=== PATIENT | male | born 1980 | race Caucasian/White ===

== ENCOUNTER 2024-05-22 08:46 | Emergency (ER) | payer OTHER, SELFPAY ==
[2024-05-22 08:56] VITALS: BP 148/79; PULSE 69; RESP 16; TEMP 36.6; O2SAT 98
--- OUTSIDE RECORDS SUMMARY | 2024-05-22 09:13 | XMS_ITS | Patient Health Summary ---
Author Organization [facility] Address [address] [facility] [place] [address] Care Team Providers Care Chief Controller Station Name Role Phone Unavailable Primary Care Provider Unavailabl e Note from [facility],non-owned Affiliates and Associated Physician Practices is amultiple site organization consisting of ambulatory clinics and hospital sitesin [place], [place], [place] and [place]. This disclosure is being madepursuant to the Care Everywhere program and may not contain all information available regarding this patient. Last updated 17.[facility] [employer] Allergies * [place](Itching) Medications * Be aware that medications may not be up to date on this document. Alwaysverify current medications with the patient. * lancets(Started 06/04/2017) Use 1 time daily as directed 1 refill remaining * blood glucose test strip(Started 06/04/2017) Use 1 time daily as directed. * metFORMIN ER 24hr (GLUCOPHAGE XR) 500 MG tablet(Started 06/04/2017) Take 1 tablet by mouth daily with dinner X 1 week, then take 1 tab po BID x 1 week, then 1 in AM and 2 at supper x 1 week and then 2 PO BID thereafter * metFORMIN ER 24hr (GLUCOPHAGE XR) 500 MG tablet(Started 07/10/2017) Take 2 tablets by mouth 2 times daily 5 refills remaining Active Problems Problem Noted Date Diagnosed Date Type 2 diabetes mellitus wit hout complication, without long-term current use of insulin 07/10/2017 SOB (shortness of breath) 06/03/2017 Hyperglycemia 06/03/2017 Social History Tobacco Use Types Packs/Day Years Used Date Smoking Tobacco: Former Cigarettes 1.5 5 Smokeless Tobacco: Never Alcohol Use Standard Drinks/Week Comments No 0 (1 standard drink = 0.6 oz pur e alcohol) AUDIT-C Answer Date Recorded Q1: How often do you have a drink containing alc ohol? Never 09/13/2022 Average Number of Drinks Not on file 023 Q3: How often do you have si x or more drinks on one occasion? Never 09/13/2022 Sex and Gender Information Value Date Recorded Sex Assigned at Not on file Gender Identity Not on file Sexual Orientation Not on file Last Filed Vital Signs Vital Sign Reading Time Taken Comments Blood Pressure 154/83 09/13/2022 11:05 PM CDT Pulse 105 09/13/2022 11:26 PM CDT Temperature 36.5 C (97.7 F) 09/13/2022 11:05 PM CDT Respiratory Rate 14 09/13/2022 11:05 PM CDT Oxygen Saturation 99% 09/13/2022 11:05 PM CDT Inhaled Oxygen Concentration - - Weight 104.3 kg (230 lb) 09/13/2022 11:05 PM CDT Height 177.8 cm (5' 10 ) 09/13/2022 11:05 PM CDT Body Mass Index 33 09/13/2022 11:05 PM CDT Procedures * IR FL GUIDE NEEDLE PLACEMENT(Performed 10/04/2022) Performed for Adhesive capsulitis of left shoulder * CARDIAC EKG ORDER(Performed 09/17/2022) * EKG 12-LEAD(Performed 09/14/2022) Performed for Other chest pain * XR CHEST 1VW PORTABLE(Performed 09/13/2022) Performed for Other chest pain * DIFFERENTIAL MANUAL(Performed 09/13/2022) * B-TYPE NATRIURETIC PEPTIDE(Performed 09/13/2022) * D-DIMER(Performed 09/13/2022) * TROPONIN-I HIGH SENSITIVE(Performed 09/13/2022) * CBC W AUTO DIFFERENTIAL(Performed 09/13/2022) * BASIC METABOLIC PANEL (CALCIUM TOTAL)(Performed 09/13/2022) * GLUCOSE - POINT OF CARE(Performed 09/13/2022) * EKG 12-LEAD(Performed 09/13/2022) Performed for Other chest pain * CARDIAC RHYTHM STRIP ORDER(Performed 06/05/2017) * GLUCOSE - POINT OF CARE(Performed 06/04/2017) * XR CHEST 1VW PORTABLE(Performed 06/04/2017) Performed for SOB (shortness of breath), Hyperglycemia * LACTIC ACID BLOOD(Performed 06/04/2017) Performed for Lactic acid acidosis * LIPID PROFILE(Performed 06/04/2017) Performed for Type 2 diabetes mellitus with hyperglycemia, without long-term current use of insulin([facility]) * COMPREHENSIVE METABOLIC PANEL(Performed 06/04/2017) * CBC W AUTO DIFFERENTIAL(Performed 06/04/2017) * GLUCOSE - POINT OF CARE(Performed 06/03/2017) * MICROALBUMIN URINE RANDOM(Performed 06/03/2017) Performed for Type 2 diabetes mellitus with hyperglycemia, without long-term current use of insulin([facility]) * GLUCOSE - POINT OF CARE(Performed 06/03/2017) * LACTIC ACID BLOOD(Performed 06/03/2017) Performed for Lactic acid acidosis * GLUCOSE - POINT OF CARE(Performed 06/03/2017) * HEMOGLOBIN A1C(Performed 06/03/2017) Performed for Hyperglycemia * GLUCOSE - POINT OF CARE(Performed 06/03/2017) * BLOOD GASES ARTERIAL POCT(Performed 06/03/2017) * BLOOD GASES ART (ISTAT)(Performed 06/03/2017) * BASIC METABOLIC PANEL (CALCIUM TOTAL)(Performed 06/03/2017) * TROPONIN I(Performed 06/03/2017) * LACTIC ACID BLOOD(Performed 06/03/2017) * URINALYSIS REFLEX MICROSCOPIC REFLEX CULTURE(Performed 06/03/2017) * TROPONIN I(Performed 06/03/2017) * LACTIC ACID BLOOD(Performed 06/03/2017) * CT ANGIO CHEST(Performed 06/03/2017) Performed for SOB (shortness of breath) * CULTURE BLOOD(Performed 06/02/2017) * XR CHEST 1VW(Performed 06/02/2017) Performed for SOB (shortness of breath) * PROCALCITONIN LEVEL(Performed 06/02/2017) * TROPONIN I(Performed 06/02/2017) * LACTIC ACID BLOOD(Performed 06/02/2017) * COMPREHENSIVE METABOLIC PANEL(Performed 06/02/2017) * CBC W AUTO DIFFERENTIAL(Performed 06/02/2017) * CULTURE BLOOD(Performed 06/02/2017) * EKG 12-LEAD(Performed 06/02/2017) Performed for SOB (shortness of breath) Results * IR GUIDED NEEDLE PLACEMENT 49945 (10/04/2022 11:20 AM CDT) Anatomical Region Laterality Modality Lung, Abdomen, Chest, Breast Com puted Radiography 10/04/2022 11:4 1 AM CDT Impressions 10/05/2022 5:07 AM CDT IMPRESSION: Successful fluoroscopy-guided left shoulder injection. > Interpreting Provider: Agnes Bhakta MD on 10/05/2022 5:07 AM Narrative 10/05/2022 5:07 AM CDT PROCEDURE: IR FL GUIDE NEEDLE PLACEMENT DATE/TIME OF EXAM: 10/04/2022 11:21 AM CLINICAL INFORMATION: None relevant/not provided if blank. Indication: M75.02: Adhesive capsulitis of left shoulder Additional History: COMPARISON: None. FLUOROSCOPY DOSE: 0 Fluoro dose not available Reference air kerma (ka,r). FINDINGS: The procedure, risks, and possible complications were explained to the patient in detail, and informed consent was obtained. The patient was placed supine on the procedure table. The left shoulder was prepped and draped in the usual sterile manner. Local anesthesia was provided with 1% Lidocaine. . Adequate hemostasis was achieved and a sterile dressing was applied. Small amount of contrast was injected to check the needle position. This was followed by intra-articular instillation of 2 mL 1% lidocaine, 2 mL 0.5% Sensorcaine, and 1 mL (80 mg) of Depo-Medrol. Preprocedure pain level 7/10. Postprocedure pain level 1/10. The patient tolerated the procedure well and was transferred to the holding area in stable condition. There were no immediate complications associated with the procedure. Procedure Note Agnes Bhakta MD - 10/05/2022 PROCEDURE: IR FL GUIDE NEEDLE PLACEMENT DATE/TIME OF EXAM: 10/04/2022 11:21 AM CLINICAL INFORMATION: None relevant/not provided if blank. Indication: M75.02: Adhesive capsulitis of left shoulder Additional History: COMPARISON: None. FLUOROSCOPY DOSE: 0 Fluoro dose not available Reference air kerma(ka,r). FINDINGS: The procedure, risks, and possible complications were explained to the patient in detail, and informed consent was obtained. The patient was placed supine on the procedure table. The left shoulder was prepped and draped in the usual sterile manner. Local anesthesia was provided with 1% Lidocaine. . Adequate hemostasiswas achieved and a sterile dressing was applied. Small amount of contrast was injected to check the needle position. This was followed by intra-articular instillation of 2 mL 1% lidocaine,2 mL 0.5% Sensorcaine, and 1 mL (80 mg) of Depo-Medrol. Preprocedure pain level 7/10. Postprocedure pain level 1/10. The patient tolerated the procedure well [facility] There were no immediate complicationsassociated with the procedure. IMPRESSION: Successful fluoroscopy-guided left shoulder injection. > Interpreting Provider: Agnes Bhakta MD on 10/05/2022 5:07 AM Stephanie Pham MD IR ORDERABLES * CARDIAC EKG ORDER (09/17/2022 12:58 PM CDT) Narrative 09/17/2022 12:58 PM CDT Ordered by an unspecified provider. Scanned Document CARDIAC SERVICES ORD ERABLES * XR CHEST 1VW PORTABLE (09/13/2022 11:36 PM CDT) Only the most recent of2 resultswithin the time period is included. Anatomical Region Laterality Modality Chest Computed Radiogr aphy 09/14/2022 4:56 AM CDT Impressions 09/14/2022 5:30 AM CDT IMPRESSION: No acute process. > Interpreting Provider: Agnes Bhakta MD on 09/14/2022 5:30 AM Narrative 09/14/2022 5:30 AM CDT PROCEDURE: XR CHEST 1VW PORTABLE 09/14/2022 4:56 AM HISTORY: R07.89: Other chest pain. FINDINGS AND IMPRESSION: COMPARISON: 06/04/2017. FINDINGS: Single view of the chest reveals no evidence of pulmonary disease. The heart and mediastinum are within normal limits. The diaphragms are smooth and the costophrenic angles are clear. The lungs are radiographically clear. Bony thorax is normal. Procedure Note Agnes Bhakta MD - 09/14/2022 PROCEDURE: XR CHEST 1VW PORTABLE 09/14/2022 4:56 AM HISTORY: R07.89: Other chest pain. FINDINGS AND IMPRESSION: COMPARISON: 06/04/2017. FINDINGS: Single view of the chest reveals no evidence of pulmonary disease. The heart and mediastinum are within normal limits. The diaphragms are smooth and the costophrenic angles are clear. The lungs are radiographically clear. Bony thorax is normal. IMPRESSION: No acute process. > Interpreting Provider: Agnes Bhakta MD on 09/14/2022 5:30 AM Robby Anne MD DIAGNOSTIC IMAGING O RDERABLES * TROPONIN-I HIGH SENSITIVE (09/13/2022 11:17 PM CDT) Pathologist [facility] Troponin I High Sensitive <3 <=35 ng/L 09/14/2022 12:04 AM CDT [facility] Blood BLOOD SPECIMEN / Unknown Venipuncture / Unknown 09/13/2022 11:17 PM CDT 09/13/2022 11:44 PM CDT Robby Anne MD LAB - CHEMISTRY [facility] Organization Address City/State/[facility] Co de Phone Number [facility] [address] * D-DIMER (09/13/2022 11:17 PM CDT) Pathologist [facility] D-Dimer <0.27 <0.50 ug/mL FEU 09/13/2022 11:54 PM CDT [facility] Blood BLOOD SPECIMEN / Unknown Venipuncture / Unknown 09/13/2022 11:17 PM CDT 09/13/2022 11:41 PM CDT Narrative [facility] - 09/13/2022 11:54 PM CDT Intended for use in conjunction with a clinical pretest probability (PTP) assessment model to exclude pulmonary embolism (PE) and deep venous thrombosis (DVT) in outpatients suspected of PE or DVT when the D-dimer level is inferior to a predefined cut-off. A D-dimer test should be used in conjunction with a well validated clinical score to safely exclude VTE in outpatients with a low or moderate clinical score. Patients with distal DVT may have a normal D-dimer level. In DIC the D-dimer level increases, therefore D-dimer assays can help in the diagnosis of DIC and in DIC patient management. Robby Anne MD LAB - COAGULATION OR DERABLES Performing Organization Address [facility]/ZIP Co de Phone Number [facility] [address] * (ABNORMAL) DIFFERENTIAL MANUAL (09/13/2022 11:17 PM CDT) WBC Auto 10.5(H) 4.0 - 10.0 x10E9/L 09/14/2022 1:33 AM CDT [facility] Neutrophils % Manual 50 40 - 75 % 09/14/2022 1:33 AM T [facility] Lymphocytes % Manual 42 19 - 53 % 09/14/2022 1:33 AM CDT [facility] Monocytes % Manual 6 5 - 13 % 09/14/2022 1:33 AM T [facility] Eosinophils % Manual 2 1 - 7 % 09/14/2022 1:33 AM T [facility] Neutrophils Absolute Manual 5.3 1.6 - 6.1 x10E3/uL 09/14/2022 1:33 AM CDT [facility] Lymphocytes Absolute Manual 4.4(H) 1.2 - 3.7 x10E3/uL 09/14/2022 1:33 AM T [facility] Monocytes Absolute Manual 0.6 0.2 - 0.9 x10E3/uL 09/14/2022 1:33 AM T [facility] Eosinophils Absolute Manual 0.2 0.0 - 0.5 x10E3/uL 09/14/2022 1:33 AM T [facility] Cells Counted 100 # cells 09/14/2022 1:33 AM T [facility] Platelet Estimation Adequate platelets Normal, Adequate platelets 09/14/2022 1:33 AM T [facility] RBC Morphology Normal 09/14/2022 1:33 AM T [facility] Atypical Lymphocyte Occasional(A ) None 09/14/2022 1:33 AM T [facility] Large Platelets Occasional(A ) None 09/14/2022 1:33 AM T [facility] Blood BLOOD SPECIMEN / Unknown Venipuncture / Unknown 09/13/2022 11:17 PM CDT 09/13/2022 11:42 PM CDT Robby Anne MD LAB - HEMATOLOGY ORD ERABLES Performing Organization Address [facility]/State/ZIP Co de Phone Number [facility] [address] * (ABNORMAL) CBC W AUTO DIFFERENTIAL (09/13/2022 11:17 PM CDT) Only the most recent of3 resultswithin the time period is included. WBC 10.5(H) 4.0 - 10.0 x10E9/L 09/13/2022 11:46 PM CDT [facility] RBC 4.66 4.40 - 6.10 x10E12/L 09/13/2022 11:46 PM CDT [facility] Hemoglobin 14.3 13.7 - 17.5 gm/dL 09/13/2022 11:46 PM CDT [facility] Hematocrit 41.1 40.1 - 51.0 % 09/13/2022 11:46 PM CDT [facility] MCV 88.2 78.0 - 100.0 fl 09/13/2022 11:46 PM CDT [facility] MCH 30.7 25.6 - 34.0 pg 09/13/2022 11:46 PM CDT [facility] MCHC 34.8 32.3 - 36.5 gm/dL 09/13/2022 11:46 PM CDT [facility] RDW 13.3 11.6 - 14.4 % 09/13/2022 11:46 PM CDT [facility] MPV 9.8 9.4 - 12.4 fl 09/13/2022 11:46 PM CDT [facility] Platelet Count 318 163 - 369 x10E9/L 09/13/2022 11:46 PM CDT [facility] nRBC Auto 0 <=0 /100 WBC 09/13/2022 11:46 PM CDT [facility] nRBC Absolute 0.00 <=0 x10E9/L 09/13/2022 11:46 PM CDT [facility] Blood BLOOD SPECIMEN / Unknown Venipuncture / Unknown 09/13/2022 11:17 PM CDT 09/13/2022 11:42 PM CDT Robby Anne MD LAB - HEMATOLOGY ORD ERABLES [facility] [address] [place] [address], [place] * (ABNORMAL) BASIC METABOLIC PANEL (CALCIUM TOTAL) (09/13/2022 11:17 PM CDT) Only the most recent of2 resultswithin the time period is included. Glucose 115 70 - 125 mg/dL 09/14/2022 12:02 AM CDT [facility] Sodium 141 136 - 145 mmol/L 09/14/2022 12:02 AM T [facility] Potassium 3.3(L) 3.4 - 5.1 mmol/L 09/14/2022 12:02 AM T [facility] Chloride 106 98 - 107 mmol/L 09/14/2022 12:02 AM T [facility] CO2 21(L) 22 - 29 mmol/L 09/14/2022 12:02 AM T [facility] Calcium 9.09 8.4 - 10.2 mg/dL 09/14/2022 12:02 AM T [facility] Anion Gap 17(H) 6 - 16 mmol/L 09/14/2022 12:02 AM T [facility] BUN 9.3 8.4 - 25.7 mg/dL 09/14/2022 12:02 AM T [facility] Creatinine 0.92 0.72 - 1.25 mg/dL 09/14/2022 12:02 AM T [facility] eGFR >90 >90 mL/min/1.7 3m2 09/14/2022 12:02 AM T [facility] Comment:The GFR result was c alculated using the updated CKD-EPI Creatinine Equation (2020). Blood BLOOD SPECIMEN / Unknown Venipuncture / Unknown 09/13/2022 11:17 PM CDT 09/13/2022 11:44 PM CDT Robby Anne MD LAB - CHEMISTRY [facility] Organization Address City/State/ZIP Co de Phone Number [facility] [address] [place] [address] * B-TYPE NATRIURETIC PEPTIDE (09/13/2022 11:17 PM CDT) BNP 20 10 - 100 pg/mL 09/14/2022 12:01 AM T [facility] Blood BLOOD SPECIMEN / Unknown Venipuncture / Unknown 09/13/2022 11:17 PM CDT 09/13/2022 11:44 PM CDT Robby Anne MD LAB - CHEMISTRY ORDE RABLES Performing Organization Address City/[facility] Co de Phone Number [facility] [address] * GLUCOSE - POINT OF CARE (09/13/2022 11:16 PM CDT) Only the most recent of6 resultswithin the time period is included. [facility] Glucose WB/POC 100 70 - 125 mg/dL 09/13/2022 11:17 PM CDT [facility] Specimen Type Cap Fingerstick 2022 11:17 PM CDT [facility] Blood BLOOD SPECIMEN / Unknown 09/13/2022 11:16 PM CDT 09/13/2022 11:17 PM CDT Robby Anne MD LAB - POINT OF CARE ORDERABLES Performing Organization Address [facility] Co de Phone Number [facility] [address] * EKG 12-LEAD (09/13/2022 11:09 PM CDT) Only the most recent of2 resultswithin the time period is included. [facility] Ventricular Rate 101 BPM [facility] Atrial Rate 101 BPM [facility] P-R Interval 138 ms [facility] QRS Duration ms 88 ms [facility] Q-T Interval ms 354 ms [facility] QTC Calculation (Bezet) 459 ms [facility] Calculated P [place] 39 degrees [facility] Calculated R [place] 58 degrees [facility] MUSE Calculated T [place] 27 degrees [facility] M[facility] Interpretation EKG SINUS TACHYCARDIA OTHERWISE NORMAL ECG WHEN COMPARED WITH ECG OF 02-JUN-2017 22:33, NO SIGNIFICANT CHANGE WAS FOUND Confirmed by THOM PALACIO, HILARIA ([id number]), desk editor BAL KAT ([id number]) on 09/16/2022 8:24:03 AM [facility] 09/13/2022 11:0 9 PM CDT 09/16/2022 8:24 AM CDT Robby Anne MD ECG ORDERABLES [facility] * CARDIAC RHYTHM STRIP ORDER (06/05/2017 10:46 AM CDT) Narrative 06/05/2017 10:46 AM CDT Ordered by an unspecified provider. Scanned Document CARDIAC SERVICES ORD ERABLES * (ABNORMAL) COMPREHENSIVE METABOLIC PANEL (06/04/2017 4:28 AM CDT) Only the most recent of2 resultswithin the time period is included. [facility] Glucose 134(H) 70 - 125 mg/dL 06/04/2017 5:24 AM T [facility] Sodium 137 136 - 145 mmol/L 06/04/2017 5:24 AM [facility] Potassium 3.7 3.4 - 4.5 mmol/L 06/04/2017 5:24 AM [facility] Chloride 106 98 - 107 mmol/L 06/04/2017 5:24 AM [facility] CO2 21(L) 22 - 29 mmol/L 06/04/2017 5:24 AM [facility] Calcium 8.7 8.4 - 10.2 mg/dL 06/04/2017 5:24 AM [facility] Anion Gap 14 10 - 20 mmol/L 06/04/2017 5:24 AM [facility] BUN 6.8(L) 8.4 - 25.7 mg/dL 06/04/2017 5:24 AM [facility] Creatinine 0.79 0.72 - 1.25 mg/dL 06/04/2017 5:24 AM [facility] eGFR by MDRD >60 >60 mL/min/1.7 3m2 06/04/2017 5:24 AM [facility] eGFR by MDRD >60 >60 mL/min/1.7 3m2 06/04/2017 5:24 AM [facility] Alkaline Phosphatase 62 40 - 150 U/L 06/04/2017 5:24 AM [facility] ALT 34 5 - 55 U/L 06/04/2017 5:24 AM [facility] AST 21 5 - 34 U/L 06/04/2017 5:24 AM [facility] Protein Total 6.4 6.4 - 8.3 gm/dL 06/04/2017 5:24 AM CDT [facility] Albumin 3.4(L) 3.5 - 5.0 gm/dL 06/04/2017 5:24 AM CDT [facility] Globulin Total 3.0 2.6 - 4.0 gm/dL 06/04/2017 5:24 AM CDT [facility] Albumin/Globulin Ratio 1.1 0.9 - 1.6 06/04/2017 5:24 AM CDT [facility] Bilirubin Total 0.8 0.2 - 1.2 mg/dL 06/04/2017 5:24 AM CDT [facility] Blood BLOOD SPECIMEN / Unknown Lab Venipuncture / Unknown 06/04/2017 4:28 AM CDT 06/04/2017 4:48 AM CDT Gregorio Evans MD LAB - CHEMISTRY [facility] Performing Organization Address [facility] Co de Phone Number [facility] [address] * LACTIC ACID BLOOD (06/04/2017 4:28 AM CDT) Only the most recent of5 resultswithin the time period is included. Lactic Acid 1.31 0.5 - 2.2 mmol/L 06/04/2017 5:22 AM CDT [facility] Blood BLOOD SPECIMEN / Unknown Lab Venipuncture / Unknown 06/04/2017 4:28 AM CDT 06/04/2017 4:47 AM CDT Dominic Juárez MD LAB - CHEMISTRY [facility] [employer] Performing Organization Address [facility] Co de Phone Number [facility] [address] * (ABNORMAL) LIPID PROFILE (06/04/2017 4:28 AM CDT) Cholesterol 199 <200 mg/dL 06/04/2017 5:24 AM CDT [facility] Triglycerides 114 <150 mg/dL 06/04/2017 5:24 AM CDT [facility] HDL Cholesterol 33(L) >40 mg/dL 8 5:24 AM CDT [facility] Chol HDL Ratio 6.0 1.0 - 6.0 06/04/2017 5:24 AM T [facility] LDL Calculated 143(H) 65 - 130 mg/dL 06/04/2017 5:24 AM T [facility] VLDL Calculated 23 10 - 40 mg/dL 06/04/2017 5:24 AM T [facility] Blood BLOOD SPECIMEN / Unknown Lab Venipuncture / Unknown 06/04/2017 4:28 AM CDT 06/04/2017 4:48 AM CDT Narrative [facility] - 06/04/2017 5:24 AM CDT Lipid Profile Comment: CHOLESTEROL LEVEL..................CLINICAL INTERPRETATION LESS THAN 200 MG/DL..............................DESIRABLE 200-239 MG/DL..............................BORDERLINE HIGH GREATER THAN 240 MG/DL................................HIGH LDL-CHOLESTEROL LEVEL..............CLINICAL INTERPRETATION LESS THAN 100 MG/DL................................OPTIMAL 100-129 MG/DL.................................NEAR OPTIMAL GREATER THAN 160 MG/DL...........................HIGH RISK HDL RISK LEVEL GREATER THEN 60 MG/DL............................DECREASED 40-60 MG/DL........................................AVERAGE LESS THAN 40 MG/DL...............................INCREASED TRIGLYCERIDE LEVEL..................CLINICAL INTERPRETATION LESS THAN 150 MG/DL...............................DESIRABLE 150-199 MG/DL...............................BORDERLINE HIGH 200-499 MG/DL..........................................HIGH GREATER THAN 500..................................VERY HIGH THE NATIONAL CHOLESTEROL EDUCATION PROGRAM HAS SET THE ABOVE GUIDELINES (REFERANCE VALUES) FOR CHOLESTEROL AND HDL. RISK ASSOCIATED WITH CHOLESTEROL/HDL RATIOS RISK....................MALE RATIO.............FEMALE RATIO 1/2 AVERAGE.................<3.4.......................<3.3 LOW RISK.................... 4.0 ...................... 3.8 AVERAGE..................... 5.0 ...................... 4.5 2X AVERAGE.................. 9.5 ...................... 7.0 3X AVERAGE...................>23........................>11 Dominic Juárez MD LAB - CHEMISTRY ORDE RABLES Performing Organization Address City/[facility]/ZIP Co de Phone Number [facility] [address] * (ABNORMAL) MICROALBUMIN URINE RANDOM (06/03/2017 6:23 PM CDT) Microalbumin Urine 50.0(H) 0.0 - 20.0 mg/dL 06/03/2017 6:33 PM CDT [facility] Urine URINE SPECIMEN OBTAINED BY CLEAN CATCH PROCEDURE / Unknown Collection / Unknown 06/03/2017 6:23 PM CDT 06/03/2017 6:28 PM CDT Dominic Juárez MD LAB - URINE CHEMISTR Y ORDERABLES Performing Organization Address [facility] Co de Phone Number [facility] [address] * (ABNORMAL) HEMOGLOBIN A1C (06/03/2017 9:06 AM CDT) Hemoglobin A1c 8.6(H) 4.2 - 5.6 % 06/03/2017 9:43 AM CDT [facility] Estimated Average Glucose 200 mg/dL 06/03/2017 9:43 AM CDT [facility] Whole Blood BLOOD SPECIMEN WITH EDTA / Unknown Lab Venipuncture / Unknown 06/03/2017 9:06 AM CDT 06/03/2017 9:27 AM CDT Narrative [facility] - 06/03/2017 9:43 AM CDT The following cutoff levels are recommended by [place] [employer]. A1c > 6.5% : considered as diabetes if two separate tests >6.5% or in an appropriate clinical setting. A1c 5.7% - 6.4% : considered as prediabetes (suggest increased risk for diabetes and cardiovascular disease) Control target level: Should be individualized. < 7 for general (non-) , < 8% less stringent goal, < 6.5 more stringent goal. Hemoglobin A1c measurements are used as an aid in the diagnosis of diabetic mellitus, as an aid to identify patients who may be at the risk for developing diabetic mellitus, and for the monitoring long-term blood glucose control in individuals with diabetes mellitus. This test should not replace glucose testing for patients with Type 1 diabetes, pediatric patients, or women. Falsely low HbA1c results may be observed in patients with clinical conditions that shorten erythrocyte life span or decrease mean erythrocyte age such as the presence of unstable hemoglobin variants, elevated hemoglobin F level or other causes of hemolytic anemia . HbA1c may not accurately reflect glycemic control when clinical conditions that affect erythrocyte survival are present. Severe Iron deficiency anemia may yield falsely high results. Hemoglobin A1c assay should not be used to diagnose or monitor diabetes in patients with malignancy, recent blood transfusion, chronic kidney or liver disease and interpretation. This method may yield falsely low results when hemoglobin (HbF) exceeds 5% in the specimen. Dominic Juárez MD LAB - CHEMISTRY JESSIKAE PATTIE Performing Organization Address [facility] Co de Phone Number [facility] [address] * BLOOD GASES ARTERIAL POCT (06/03/2017 3:44 AM CDT) Comment Notification Label Only - See Separate Report 06/03/2017 5:00 AM CDT [facility] Blood BLOOD SPECIMEN / Unknown 06/03/2017 3:44 AM CDT 06/03/2017 3:44 AM CDT Gregorio Evans MD LAB - BLOOD GASES OR DERABLES Performing Organization Address [facility] de Phone Number [facility] [address] * (ABNORMAL) BLOOD GASES ART (ISTAT) (06/03/2017 3:40 AM CDT) pH Arterial POCT 7.41 7.35 - 7.45 pH 06/03/2017 5:56 AM CDT [facility] pCO2 Arterial 36.7 35 - 45 mmHg 06/03/2017 5:56 AM CDT [facility] pO2 Arterial 76(L) 80 - 105 mmHg 06/03/2017 5:56 AM CDT [facility] HCO3 Arterial POCT 23.4 22 - 26 mmol/L 06/03/2017 5:56 AM CDT [facility] BE Arterial -1 -2 - 3 mmol/L 06/03/2017 5:56 AM CDT [facility] TCO2 Arterial Calc POCT 24 23 - 27 mmol/L 06/03/2017 5:56 AM CDT [facility] O2 Saturation Arterial 95 95 - 98 % 06/03/2017 5:56 AM CDT [facility] Site R Radial 06/03/2017 5:56 AM CDT [facility] Burak's Test POS/PASS 06/03/2017 5:56 AM CDT [facility] Treatment Delivery Method Room Air 06/03/2017 5:56 AM CDT [facility] Sample iSTAT ARTERI 06/03/2017 5:56 AM CDT [facility] PT iSTAT [id number] 06/03/2017 5:56 AM CDT [facility] Device 06/03/2017 5:56 AM CDT [facility] [employer] ID [id number] 06/03/2017 5:56 AM CDT [facility] Blood, arterial ARTERIAL BLOOD SPECIMEN / Unknown 06/03/2017 3:40 AM CDT 06/03/2017 5:56 AM CDT Gregorio Evans MD LAB - POINT OF CARE ORDERABLES Performing Organization Address City/State/[facility] Co de Phone Number [facility] [address] * TROPONIN I (06/03/2017 3:33 AM CDT) Only the most recent of3 resultswithin the time period is included. Troponin I 0.020 <=0.049 ng/mL 06/03/2017 4:09 AM CDT [facility] Blood BLOOD SPECIMEN / Unknown Lab Venipuncture / Unknown 06/03/2017 3:33 AM CDT 06/03/2017 3:38 AM CDT Narrative [facility] - 06/03/2017 4:09 AM CDT Note: Diagnosis of myocardial infarction requires symptoms of ischemia or EKG changes of ischemia and Troponin I >99th percentile of normal with <10% coefficient of variation (CV) (0.05 ng/mL) Troponin should be drawn on initial assessment and 3-6 hours later as clinically indicated. Any condition resulting in myocardial cell damage can increase cardiac troponin levels. In addition to myocardial infarction, these include but are not limited to congestive heart failure, arrhythmia, myocarditis, and non-cardiac related causes such as pulmonary embolism, renal failure and sepsis. Gregorio Evans MD LAB - CHEMISTRY ORDE RABLES Performing Organization Address [facility]/ZIP Co de Phone Number [facility] [address] * (ABNORMAL) URINALYSIS REFLEX MICROSCOPIC REFLEX CULTURE (06/03/2017 2:31 AM CDT) Color UA Straw Straw, Yellow 06/03/2017 2:41 AM CDT [facility] Clarity UA Clear Clear 06/03/2017 2:41 AM CDT [facility] Glucose UA 3+(A) Negative 06/03/2017 2:41 AM CDT [facility] Bilirubin UA Negative Negative 06/03/2017 2:41 AM CDT [facility] Ketone UA Trace(A) Negative 06/03/2017 2:41 AM CDT [facility] Specific Harper UA 1.046(H) 1.005 - 1.030 06/03/2017 2:41 AM CDT [facility] Blood UA Negative Negative 06/03/2017 2:41 AM CDT [facility] pH UA 6.0 5.0 - 8.0 pH 06/03/2017 2:41 AM T [facility] Protein UA Negative Negative 06/03/2017 2:41 AM CDT [facility] Urobilinogen UA Negative Negative mg/dL 06/03/2017 2:41 AM CDT [facility] Nitrite UA Negative Negative 06/03/2017 2:41 AM CDT [facility] Leukocyte UA Negative Negative 06/03/2017 2:41 AM T [facility] Urine Microscopy Urine microscopy not indicated 06/03/2017 2:41 AM CDT [facility] Reflex Status Culture not indicated 06/03/2017 2:41 AM T [facility] Urine URINE SPECIMEN OBTAINED BY CLEAN CATCH PROCEDURE / Unknown Collection / Unknown 06/03/2017 2:31 AM CDT 06/03/2017 2:36 AM CDT Narrative [facility] - 06/03/2017 2:41 AM CDT Gregorio Evans MD LAB - URINALYSIS ORD ERABLES Performing Organization Address [facility]/ZIP Co de Phone Number [facility] [address] * CT ANGIO CHEST [id number] (06/03/2017 1:28 AM CDT) Anatomical Region Laterality Modality Chest Computed Tomogra phy 06/03/2017 5:17 AM CDT Impressions 06/03/2017 5:22 AM CDT 1. No apparent pulmonary embolus. 2. No acute infiltrate or consolidation. Exam reviewed and findings conveyed to emergency department referring service at 0155 hours central time. Narrative 06/03/2017 5:22 AM CDT IMAGING STUDIES: CT ANGIO CHEST DATE: 06/03/2017 1:31 AM HISTORY: Shortness of breath. 36-year-old male with chest pain and shortness of breath. COMPARISON: Chest portable 06/02/2017 at approximately 2223 hours. DISCUSSION: CTA chest following intravenous administration of 90 ml Omnipaque 300 contrast. Coronal and sagittal reconstructions. Automated exposure control with radiation dose reduction. Heart size normal. No pericardial effusion. No aortic aneurysm or dissection. No apparent pulmonary embolus. No mediastinal or axillary adenopathy. Minimal basilar subsegmental atelectasis. No focal infiltrate or consolidation. No pleural effusion or pneumothorax. No acute skeletal abnormality. No acute abnormality in the upper abdomen. Procedure Note Richie Camara MD - 06/03/2017 IMAGING STUDIES: CT ANGIO CHEST DATE: 06/03/2017 1:31 AM HISTORY: Shortness of breath. 36-year-old male with chest pain and shortness of breath. COMPARISON: Chest portable 06/02/2017 at approximately 2223 hours. DISCUSSION: CTA chest following intravenous administration of 90 ml Omnipaque 300 contrast. Coronal and sagittal reconstructions. Automated exposure control with radiation dose reduction. Heart size normal. No pericardial effusion. No aortic aneurysm or dissection. No apparent pulmonary embolus. No mediastinal or axillary adenopathy. Minimal basilar subsegmental atelectasis. No focal infiltrate or consolidation. No pleural effusion or pneumothorax. No acute skeletal abnormality. No acute abnormality in the upper abdomen. IMPRESSION 1. No apparent pulmonary embolus. 2. No acute infiltrate or consolidation. Exam reviewed and findings conveyed to emergency department referring service at 0155 hours central time. Gregorio Evans MD CT ORDERABLES * CULTURE BLOOD (06/02/2017 11:25 PM CDT) Only the most recent of2 resultswithin the time period is included. Culture No growth day 5 SOREN 06/08/2017 2:12 PM CDT [facility] Blood PERIPHERAL BLOOD / Unknown Lab Venipuncture / Unknown 06/02/2017 11:25 PM CDT 06/02/2017 11:26 PM CDT Gregorio Evans MD LAB - MICROBIOLOGY O RDERABLES [facility] [address] * XR CHEST 1 VW [id number] (06/02/2017 10:55 PM CDT) Anatomical Region Laterality Modality Chest Radiographic Domenica ging 06/03/2017 6:17 AM CDT Narrative 06/03/2017 6:17 AM CDT PROCEDURE: XR CHEST 1VW 06/03/2017 6:17 AM HISTORY: Shortness of breath. FINDINGS AND IMPRESSION: COMPARISON: None Pulmonary hypoinflation No focal consolidation or pleural effusion. Cardiac size is unremarkable Pulmonary vascularity is within normal limits No pneumothorax. Bony thorax is unremarkable. Procedure Note Agnes Bhakta MD - 06/03/2017 PROCEDURE: XR CHEST 1VW 06/03/2017 6:17 AM HISTORY: Shortness of breath. FINDINGS AND IMPRESSION: COMPARISON: None Pulmonary hypoinflation No focal consolidation or pleural effusion. Cardiac size is unremarkable Pulmonary vascularity is within normal limits No pneumothorax. Bony thorax is unremarkable. Gregorio Evans MD DIAGNOSTIC IMAGING O RDERABLES * PROCALCITONIN LEVEL (06/02/2017 10:39 PM CDT) Procalcitonin 0.02 <=0.10 ng/mL 06/02/2017 11:55 PM CDT [facility] Blood BLOOD SPECIMEN / Unknown 06/02/2017 10:39 PM CDT 06/02/2017 11:23 PM CDT Narrative [facility] - 06/02/2017 11:55 PM CDT If baseline PCT is - >2.0 ng/mL: A PCT level above 2.0 ng/mL on the first day of ICU admission is associated with a high risk for progression to severe sepsis and/or septic shock. - <0.5 ng/mL: A PCT level below 0.5 ng/mL on the first day of ICU admission is associated with a low risk for progression to severe sepsis and/or septic shock. If the Procalcitonin measurement is performed shortly after systemic infection process has started (usually less than 6 hours), these values may still be low. As various non-infectious conditions are known to induce procalcitonin as well, Procalcitonin levels between 0.50 ng/mL and 2.00 ng/mL should be reviewed carefully to take into account the specific clinical background and condition(s) of the individual patient. The change in procalcitonin (PCT) concentration over time provides support in decision making on antibiotic discontinuation for suspected or confirmed septic patients and for suspected or confirmed lower respiratory tract infection (LRTI). Follow-up samples should be tested once every 1-2 days based upon physician discretion taking into account the patient's evolution and progress. Discontinuation of antibiotic therapy may be considered for suspected or confirmed septic patients if the current PCT is <= 0.5 ng/mL or <= 0.25 ng/mL for confirmed LRTI. If the PCT delta drop is > 80% in either condition, discontinuation of antibiotic therapy may be indicated. Duration of antibiotics should not be determined solely on PCT; established guidelines for the indication should be followed. Results should be interpreted in the context of a patient's clinical status and other laboratory tests. PCT peak: Highest observed PCT concentration PCT current: Most recent PCT concentration Calculate delta PCT using the following equation: Delta PCT = PCT Peak - PCT current X 100% PCT Peak The Change in Procalcitonin Calculator is available at [email or web address] If clinical picture has not improved and PCT remains high, reevaluate and consider treatment failure or other causes. Gregorio Evans MD LAB - CHEMISTRY [facility] Organization Address City/State/ZIP Co de Phone Number [id number] [place] [address]
--- OUTSIDE RECORDS SUMMARY | 2024-05-22 09:13 | XMS_ITS | Referral Summary ---
Author Organization [facility] [employer] Address [address] [place] [address] Care Team Providers Care Contract Preparer Name Role Phone Unavailable Primary Care Provider Unavailabl e Source Comments [facility] [employer],non-owned Affiliates and Associated Physician Practices is amultiple site organization consisting of ambulatory clinics and hospital sitesin [place], [place], [place]. This disclosure is being madepursuant to the Care Everywhere program and may not contain all information available regarding this patient. Last updated 17.[facility] [employer] Allergies Active Allergy Reactions Criticality Noted Date Comments Cook Itching 06/03/2017 Medications * Be aware that medications may not be up to date on this document. Alwaysverify current medications with the patient. Medication Sig Dispensed Refills Start Date End Date Status lancets Use 1 time daily as directed 100 Each 1 06/04/2017 Active blood glucose test strip Use 1 time daily as directed. 100 strip 06/04/2017 Active metFORMIN ER 24hr (GLUCOPHAGE XR) 500 MG tablet Take 1 tablet by mouth daily with dinner X 1 week, then take 1 tab po BID x 1 week, then 1 in AM and 2 at supper x 1 week and then 2 PO BID thereafter 70 tablet 06/04/2017 Active Additional Information Patient not taking.Reported on 07/10/2017 metFORMIN ER 24hr (GLUCOPHAGE XR) 500 MG tablet Take 2 tablets by mouth 2 times daily 120 tablet 5 07/10/2017 Active Active Problems Problem Noted Date Diagnosed Date [...] Mass Index 33 09/13/2022 11:05 PM CDT Functional Status Functional Status Response Date of Assess ment Is person deaf or have serious hearing difficult y? No 06/04/2017 Is person blind or have serious difficulty seein g? No 06/04/2017 Does person have serious dif ficulty walking/climbing stairs? No 06/04/2017 Does person have difficulty dressing/bathing? No 06/04/2017 Does person have difficulty doing errands alone? No 06/04/2017 Cognitive Status Response Date of Assessm ent Does person have difficulty concentrating/remembering/making decisions? No 06/04/2017 Plan of Treatment Not on file Procedures Procedure Name Priority Date/Time Associated Diagnosis Comments BASIC METABOLIC PANEL (CALCIUM TOTAL) STAT 09/13/2022 11:17 PM CDT MICROALBUMIN URINE RANDOM Routine 06/03/2017 6:23 PM CDT Type 2 diabetes mellitus with hyperglycemia, without long-term current use of insulin (HCC) HEMOGLOBIN A1C Routine 06/03/2017 9:06 AM CDT Hyperglycemia from Last 3 Months or Most Recently Relevant to Health Maintenance Results * (ABNORMAL) BASIC METABOLIC PANEL (CALCIUM TOTAL) (09/13/2022 11:17 PM CDT) Glucose 115 70 - 125 mg/dL 09/14/2022 12:02 AM CDT [facility] Sodium 141 136 - 145 mmol/L 09/14/2022 12:02 AM T [facility] Potassium 3.3(L) 3.4 - 5.1 mmol/L 09/14/2022 12:02 AM T [facility] Chloride 106 98 - 107 mmol/L 09/14/2022 12:02 AM CDT [facility] CO2 21(L) 22 - 29 mmol/L 09/14/2022 12:02 AM T [facility] Calcium 9.09 8.4 - 10.2 mg/dL 09/14/2022 12:02 AM T [facility] Anion Gap 17(H) 6 - 16 mmol/L 09/14/2022 12:02 AM T [facility] BUN 9.3 8.4 - 25.7 mg/dL 09/14/2022 12:02 AM T [facility] Creatinine 0.92 0.72 - 1.25 mg/dL 09/14/2022 12:02 AM T [facility] eGFR >90 >90 mL/min/1.7 3m2 09/14/2022 12:02 AM T [facility] Comment:The GFR result was c alculated using the updated CKD-EPI Creatinine Equation (2020). Blood BLOOD SPECIMEN / Unknown Venipuncture / Unknown 09/13/2022 11:17 PM CDT 09/13/2022 11:44 PM CDT Robby Anne MD LAB - CHEMISTRY [facility] Organization Address City/State/[facility] Co de Phone Number [facility] [address] * (ABNORMAL) MICROALBUMIN URINE RANDOM (06/03/2017 6:23 PM CDT) Microalbumin Urine 50.0(H) 0.0 - 20.0 mg/dL 06/03/2017 6:33 PM CDT [facility] Urine URINE SPECIMEN OBTAINED BY CLEAN CATCH PROCEDURE / Unknown Collection / Unknown 06/03/2017 6:23 PM CDT 06/03/2017 6:28 PM CDT Dominic Juárez MD LAB - URINE CHEMISTR Y ORDERABLES [facility] [address] * (ABNORMAL) HEMOGLOBIN A1C (06/03/2017 9:06 AM CDT) Hemoglobin A1c 8.6(H) 4.2 - 5.6 % 06/03/2017 9:43 AM CDT [facility] Estimated Average Glucose 200 mg/dL 06/03/2017 9:43 AM CDT [facility] Whole Blood BLOOD SPECIMEN WITH EDTA / Unknown Lab Venipuncture / Unknown 06/03/2017 9:06 AM CDT 06/03/2017 9:27 AM CDT Narrative [facility] - 06/03/2017 9:43 AM CDT The following cutoff levels are recommended by [place] [employer]. A1c > 6.5% : considered [...] specimen. Dominic Juárez MD LAB - CHEMISTRY [facility] [address] [place] [address], [id number] from Last 3 Months or Most Recently Relevant to Health Maintenance Advance Directives * Full Code (Latest Code Status on File) Date Activated Date Inactivated Comments 06/03/2017 5:30 AM 06/04/2017 11:58 AM
--- OUTSIDE RECORDS SUMMARY | 2024-05-22 09:13 | XMS_ITS | Clinical Summary ---
Author Organization [facility] Address [address] [place] [address] Care Team Providers Care Machine Ironer Name Role Phone Unavailable Primary Care Provider Unavailabl e Source Comments [facility],non-owned Affiliates and Associated Physician Practices is amultiple site organization consisting of ambulatory clinics and hospital sitesin [place], [place], [place] and [place]. This disclosure is being madepursuant to the Care Everywhere program and may not contain all information available regarding this patient. Last updated 17.[facility] [employer] Allergies Active Allergy Reactions Criticality Noted Date Comments [place] Itching 06/03/2017 Medications * Be aware that [...] SOB (shortness of breath) 06/03/2017 Hyperglycemia 06/03/2017 Family History Medical History Relation Name Comments Diabetes - Type 2 Brother 1 Diabetes - Type 2 Brother 2 Diabetes - Type 2 Maternal Aunt Relation Name Status Comments Brother 1 Alive Brother 2 Alive Maternal Aunt Alive Maternal Grandfather Maternal Grandmother Mother Paternal Grandfather Paternal Grandmother Social History Tobacco Use Types Packs/Day Years [...] Mass Index 33 09/13/2022 11:05 PM CDT Plan of Treatment Health Maintenance Due Date Last Done Comments HIV SCREENING 1996 HEPATITIS C SCREENING 11/21/1999 DTAP/TDAP/TD VACCINES (1 - Tdap) 2000 HEPATITIS B VACCINE (1 of 3 - 19+ 3-dose series) 2000 PNEUMOCOCCAL VACCINE (1 of 2 - PCV) 2000 DIABETES RETINOPATHY SCREENING 07/10/2017 DIABETES-HGB A1C 12/04/2017 06/03/2017 DIABETES-FOOT EXAM WITH MONOFILAMENT 07/10/2018 07/10/2017 DIABETES-STATIN 2021 DIABETES-SERUM CREATININE 09/14/20232022, 06/04/2017, 06/03/2017, Additional history exists COVID-19 VACCINE ( - season) 2023 INFLUENZA VACCINE (#1) 2023 01/18/2022 DEPRESSION SCREENING 03/11/2024 DIABETES - URINE PROTEIN SCREENING 03/11/2024 06/03/2017 ZOSTER VACCINE (1 of 2) 11/26/2031 HIB VACCINE Aged Out No longer eligi ble based on patient's age to complete this topic HPV VACCINE Aged Out No longer eligi ble based on patient's age to complete this topic MENINGOCOCCAL (Group B) VACCINE SHARED DECISION-MAKING Aged Out No longer eligible based on patient's age to complete this topic MENINGOCOCCAL GROUPS A/C/Y/W VACCINE Aged Out No longer eligible based on patient's age to complete this topic Procedures Procedure Name Priority Date/Time Associated Diagnosis [...] PANEL (CALCIUM TOTAL) (09/13/2022 11:17 PM CDT) [facility] Signature Glucose 115 70 - 125 mg/dL 09/14/2022 12:02 AM T [facility] Sodium 141 136 - 145 mmol/L 09/14/2022 12:02 AM T [facility] Potassium 3.3(L) 3.4 - 5.1 mmol/L 09/14/2022 12:02 AM T [facility] Chloride 106 98 - 107 mmol/L 09/14/2022 12:02 AM T [facility] CO2 21(L) 22 - 29 mmol/L 09/14/2022 12:02 AM T [facility] Calcium 9.09 8.4 - 10.2 mg/dL 09/14/2022 12:02 AM T [facility] Anion Gap 17(H) 6 - 16 mmol/L 09/14/2022 12:02 AM T [facility] BUN 9.3 8.4 - 25.7 mg/dL 09/14/2022 12:02 AM CDT [facility] Creatinine 0.92 0.72 - 1.25 mg/dL 09/14/2022 12:02 AM CDT [facility] eGFR >90 >90 mL/min/1.7 3m2 09/14/2022 12:02 AM CDT [facility] Comment:The GFR result was c alculated using the updated CKD-EPI Creatinine Equation (2020). Blood BLOOD SPECIMEN / Unknown Venipuncture / Unknown 09/13/2022 11:17 PM CDT 09/13/2022 11:44 PM CDT Robby Anne MD LAB - CHEMISTRY [facility] Performing Organization Address City/[facility]/ZIP Co de Phone Number [facility] [address] * (ABNORMAL) MICROALBUMIN URINE RANDOM (06/03/2017 6:23 PM CDT) Microalbumin Urine 50.0(H) 0.0 - 20.0 mg/dL 06/03/2017 6:33 PM CDT [facility] Urine URINE SPECIMEN OBTAINED BY CLEAN CATCH PROCEDURE / Unknown Collection / Unknown 06/03/2017 6:23 PM CDT 06/03/2017 6:28 PM CDT Dominic Juárez MD LAB - URINE CHEMISTR Y ORDERABLES Performing Organization Address [facility]/ZIP Co de Phone Number [facility] [address] [place] [address] * (ABNORMAL) HEMOGLOBIN A1C (06/03/2017 9:06 AM CDT) Hemoglobin A1c 8.6(H) 4.2 - 5.6 % 06/03/2017 9:43 AM CDT [facility] Estimated Average Glucose 200 mg/dL 06/03/2017 9:43 AM CDT [facility] Whole Blood BLOOD SPECIMEN WITH EDTA / Unknown Lab Venipuncture / Unknown 06/03/2017 9:06 AM CDT 06/03/2017 9:27 AM CDT Narrative [facility] - 06/03/2017 9:43 AM CDT The following cutoff levels are recommended by [place] [employer]. A1c > 6.5% : considered [...] Juárez MD LAB - CHEMISTRY [facility] Organization Address City/State/[facility] Co de Phone Number [facility] [address] from Last 3 Months or Most Recently Relevant to Health Maintenance Advance Directives * Full Code (Latest Code Status on File) Date Activated Date Inactivated Comments 06/03/2017 5:30 AM 06/04/2017 11:58 AM
--- OUTSIDE RECORDS SUMMARY | 2024-05-22 09:14 | XMS_ITS | Encounter Summary ---
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 Date/Time Encounter Type Encounter Description Reason Pro vider Source [facility] Encounter Template Text not used by [place]
--- OUTSIDE RECORDS SUMMARY | 2024-05-22 09:14 | XMS_ITS | Continuity of Care Document ---
Author Name [facility] Organization [facility] Care Team Providers Care Manager Of Marketing Name Role Phone [facility] Unavailable Unavailable Problems Combined list of problems from Department of Defense and Veterans Affairs facilities. It does not include entries that were removed or entered in error. Problem Status Onset Date Problem Type Date of Resolution Comments Source Anxiety Active Condition [facility] Chronic kidney disease stage 1 Active Condition [facility] Diabetes mellitus Active Condition [facility] Disorder of Shoulder Region ([facility] [id number]) Active Condition July 25, 2022 Entered By: JOSÉ ZAMAN Comment: Mild degenerative right shoulder- xray 07/20/22May 2022 Entered By: JOSÉ ZAMAN Comment: Left shoulder undeterminate xray 07/20/22Aug 2022 Entered By: JOSÉ ZAMAN Comment: Left shoulder atraumatic diabetic adhesive capsulitisAug 2022 Entered By: JOSÉ ZAMAN Comment: [facility] cortisone injection 09/27/2022 [facility] Exposed to noise Active Condition [facility] DEAN [facility] Exposure to Potentially Hazardous Substance ([facility] [id number]) Active Condition May 05 Entered By: JOSÉ ZAMAN Comment: - [place] reports history of exposure to burn pits.May 05, 2023 Entered By: JOSÉ ZAMAN Comment: -[facility] reporting history of exposure to radiation. [facility] History of appendectomy Active Condition May 10, 2021 Entered By: JOSÉ ZAMAN Comment: s/p Appy 1999. [facility] History of orchidopexy Active Condition May 10, 2021 Entered By: JOSÉ ZAMAN Comment: in childhood [facility] Insomnia Active Condition [facility] Obesity Active Condition [facility] Obstructive Sleep Apnea of Adult ([facility] [id number]) Active Condition Oct 16, 2021 Entered By: JOSÉ ZAMAN Comment: per home sleep study September Entered By: JOSÉ ZAMAN Comment: CPAP issue Oct 2021 [facility] Osteoarthritis of joint of right shoulder region Active Condition [facility] Rhinitis Active Condition [facility] Rupture of anterior cruciate ligament of right knee Active Condition May 10, 2021 Entered By: JOSÉ ZAMAN Comment: s/p right knee ACL reconstruction in 2021 Entered By: JOSÉ ZAMAN Comment: recurrence with revision in 2003 [facility] Spermatocele Active Condition Jun 10, 2008 Entered By: PENNY SORIANO Comment: bilateral [facility] Subjective tinnitus Active Condition [facility] Tobacco dependence in remission Active Condition May 10, 2021 Entered By: JOSÉ ZAMAN Comment: 3 ppd x 4 yrs, reduced 1 ppd x 9 yrsMay 10, 2021 Entered By: JOSÉ ZAMAN Comment: quit 2012. active cessation. [facility] Vitamin D deficiency Active Condition [facility] Epidermal Cyst * (ICD-9-CM 706.2) Inactive Condition 05/10/2021 [facility] Knee Pain Inactive Condition 05/10/2021 [facility] Liver function tests abnormal Inactive Condition 05/10/2021 [facility] Morbid obesity Inactive Condition 05/27/2023 [facility] Tachycardia Inactive Condition 05/27/2023 [facility] Diagnosis: ICD-10-CM G47.00 Insomnia, unspecified Active Diagnosis [facility] Diagnosis: ICD-10-CM F41.9 Anxiety disorder, unspecified Active Diagnosis [facility] Medications Combined list of outpatient medications from Department of Defense and Veterans Affairs facilities.Medications provided include 1) outpatient medications from the last 15 months, and 2) patient-reported medications. Medication Details Route Status Patient Instructions Prescription Expires Prescription Number Last Dispense Date Ordering Provider Order Date Order Qty Source CHOLECALCIF JACINDA 50MCG (2,000UNIT) TAB TAKE ONE TABLET BY MOUTH ONCE A DAY FOR VITAMIN D DEFICIEN CY. ORAL ACTIVE 05/27/2024 [id number] Martir ZAMAN 2023 100 [facility] EMPAGLIF[facility] IN 25MG TAB TAKE ONE-HALF TABLET BY MOUTH ONCE A DAY ORAL SUSPEND ED 11/12/2024 [id number] 5 Martir ZAMAN 2023 45 [facility] EMPAGLIFLOZ IN 25MG TAB TAKE ONE-HALF TABLET BY MOUTH ONCE A DAY ORAL DISCONT INUED 10/03/2023 [id number] 4 Martir ZAMAN 2022 45 [facility] ESCITALOPRA M OXALATE 20MG TAB TAKE ONE TABLET BY MOUTH ONCE A DAY FOR ANXIETY ORAL SUSPEND ED 03/03/2025 [id number] 5 Martir ZAMAN 2023 90 [facility] ESCITALOPRA M OXALATE 20MG TAB TAKE ONE TABLET BY MOUTH ONCE A DAY FOR ANXIETY ORAL DISCONT INUED 01/10/2024 [id number] 4 Martir ZAMAN 2022 90 [facility] LISINOPRIL 5MG TAB TAKE ONE-HALF TABLET BY MOUTH ONCE A DAY FOR HEART OR BLOOD PRESSURE ORAL 02/13/2024 [id number] Martir ZAMAN 2022 45 [facility] MELOXICAM 15MG TAB TAKE ONE TABLET BY MOUTH ONCE A DAY FOR PAIN TAKE WITH FOOD DO NOT TAKE OTHER NSAIDS WHILE ON THIS MED ORAL ACTIVE 07/02/2024 [id number] 5 Martir ZAAMN 2023 90 [facility] MELOXICAM 15MG TAB TAKE ONE TABLET BY MOUTH ONCE A DAY TAKE WITH FOOD DO NOT TAKE OTHER NSAIDS WHILE ON THIS MED ORAL DISCONT INUED (EDIT) 05/27/2024 [id number] 4 Martir ZAMAN 2023 30 [facility] METFORMIN HCL 1000MG TAB TAKE ONE-HALF TABLET BY MOUTH TWICE A DAY WITH MEALS FOR DIABETES TAKE WITH FOOD. AVOID ALCOHOL. DISCONTI NUE BEFORE GETTING XRAY DYE. ORAL ACTIVE 05/27/2024 [id number] 5 Martir ZAMAN PA 2023 90 [facility] METFORMIN HCL 1000MG TAB TAKE ONE-HALF TABLET BY MOUTH TWICE A DAY WITH MEALS FOR DIABETES TAKE WITH FOOD. AVOID ALCOHOL. DISCONTI NUE BEFORE GETTING XRAY DYE. ORAL DISCONT INUED 07/27/2023 [id number] Martir ZAMAN PA 2022 90 [facility] SIMVASTATIN 40MG TAB TAKE ONE-HALF TABLET BY MOUTH EVERY EVENING TO LOWER CHOLESTE ROL ORAL 10/03/2023 [id number] 4 Martir ZAMAN PA 2022 45 [facility] TRAZODONE HCL 100MG TAB TAKE ONE-HALF TABLET BY MOUTH AT BEDTIME FOR SLEEP ORAL ACTIVE 05/27/2024 [id number] 4 Martir ZAMAN PA 2023 45 [facility] Allergies, Adverse Reactions, Alerts Combined list of allergies from Department of Defense and Veterans Affairs facilities. It does not include entries that were removed or entered in error. Substance Category Reaction Severity Reaction type Status Date Reported Comments Source STRAWBERRIES Propensity to adverse reactions to food (finding) Urticaria active 1 [facility] Immunizations Combined list of available immunizations from the Department of Defense and Veterans Affairs facilities. Immunization Series Date Given Administered By Site Reaction Lot Number CVX Code Drug Hire Car Driver Status Comments Source INFLUENZA, INJECTABLE, QUADRIVALENT, PRESERVATIVE FREE 2021 150 complet ed [facility] PNEUMOCOCCAL CONJUGATE PCV20, POLYSACCHARID E [id number] CONJUGATE, ADJUVANT, PF 2021 216 complet ed [facility] TDAP 2021 115 complet ed [facility] TD(ADULT) UNSPECIFIED FORMULATION 2002 139 complet ed [facility] Results Combined list of recent chemistry, hematology and other laboratory results from Department of Defense and Veterans Affairs, ranging from 15 months to all on record, depending upon the facility. Order Name Results Value Reference Range Date Interpretation Specimen Comments Source ANTINUCLE AR AB (PB-MA) NUCLEAR AB [PRESENCE] IN SERUM Negative 05/23 Specimen Type: SERUM Comment: JOSE A IFA is a first line screen for detecting the presence of up to approximate ly 150 autoantibod ies in various autoimmune diseases. A negative JOSE A IFA result suggests JOSE A-associa silke autoimmune disease is not present at this time, but is not definitive. If there is high clinical suspicion for Sjogren's Syndrome, testing for anti-SS-A/R o antibody should be considered. Anti-Yvonne-1 antibody should be considered for clinically suspected inflammator y myopathies. AC-0: Negative Internation al Consensus on JOSE A Patterns [email or web address]://doi [email or web address] For additional information , please refer to [email or web address] [email or web address] .com/faq/FA Q129 (This link is being provided for information al/ educational purposes only.) Test Performed by [employer], [employer] [facility], [address] [place] [address] Abdulaziz Bernstein M.D., Ph.D., Director of Laboratorie s , CLIA [id number] Ordering Provider: GABBY ZAMAN Report Released Date/Time: May 24, 2023 07:48 AM Reporting Lab: [address] [id number] Performing Lab: [place] [id number] [facility] COMPREHEN SIVE METABOLIC PANEL CREATININE [MASS/VOLUM E] IN SERUM OR PLASMA 0.9 mg/dL .7 - 1.3 05/23 Specimen Type: PLASMA No comment entered. Ordering Provider: GABBY ZAMAN Report Released Date/Time: May 24, 2023 07:49 AM Reporting Lab: [facility] [address] [place] [address] Performing Lab: [facility] [address] [facility] COMPREHEN SIVE METABOLIC PANEL UREA NITROGEN [MASS/VOLUM E] IN SERUM OR PLASMA 18 mg/dL 9.0 - 25.0 05/23 Specimen Type: PLASMA No comment entered. Ordering Provider: GABBY ZAMAN Report Released Date/Time: May 24, 2023 07:49 AM Reporting Lab: [facility] [address] [place] [address] Performing Lab: [address] [facility] COMPREHEN SIVE METABOLIC PANEL GLUCOSE [MASS/VOLUM E] IN SERUM OR PLASMA 84 mg/dL 72 - 99 05/23 Specimen Type: PLASMA No comment entered. Ordering Provider: GABBY ZAMAN Report Released Date/Time: May 24, 2023 07:49 AM Reporting Lab: [facility] [address] [place] [address] Performing Lab: [address] [facility] COMPREHEN SIVE METABOLIC PANEL SODIUM [MOLES/VOLU ME] IN SERUM OR PLASMA 138 meq/L 136 - 145 05/23 Specimen Type: PLASMA No comment entered. Ordering Provider: GABBY ZAMAN Report Released Date/Time: May 24, 2023 07:49 AM Reporting Lab: [place] [address] Performing Lab: [address] [facility] COMPREHEN SIVE METABOLIC PANEL POTASSIUM [MOLES/VOLU ME] IN SERUM OR PLASMA 4.2 meq/L 3.5 - 5 05/23 Specimen Type: PLASMA No comment entered. Ordering Provider: GABBY ZAMAN Report Released Date/Time: May 24, 2023 07:49 AM Reporting Lab: [place] [address] Performing Lab: [facility] [address] [place] [id number] [place] [address] [facility] COMPREHEN SIVE METABOLIC PANEL CHLORIDE [MOLES/VOLU ME] IN SERUM OR PLASMA 105 meq/L 98 - 107 05/23 Specimen Type: PLASMA No comment entered. Ordering Provider: GABBY ZAMAN Report Released Date/Time: May 24, 2023 07:49 AM Reporting Lab: [facility] [address] [place] [address] Performing Lab: [facility] [address] [facility] COMPREHEN SIVE METABOLIC PANEL CARBON DIOXIDE, TOTAL [MOLES/VOLU ME] IN SERUM OR PLASMA 23 meq/L 22 - 31 05/23 Specimen Type: PLASMA No comment entered. Ordering Provider: GABBY ZAMAN Report Released Date/Time: May 24, 2023 07:49 AM Reporting Lab: [facility] [address] [place] [address] Performing Lab: [facility] [address] [place] [address] [facility] COMPREHEN SIVE METABOLIC PANEL CALCIUM [MASS/VOLUM E] IN SERUM OR PLASMA 8.9 mg/dL 8.4 - 10.4 05/23 Specimen Type: PLASMA No comment entered. Ordering Provider: GABBY ZAMAN Report Released Date/Time: May 24, 2023 07:49 AM Reporting Lab: [facility] [address] [place] [address] Performing Lab: [address] [facility] COMPREHEN SIVE METABOLIC PANEL PROTEIN [MASS/VOLUM E] IN SERUM OR PLASMA 7.1 g/dL 6.0 - 8.6 05/23 Specimen Type: PLASMA No comment entered. Ordering Provider: GABBY ZAMAN Report Released Date/Time: May 24, 2023 07:49 AM Reporting Lab: [facility] [address] [place] [address] Performing Lab: [facility] [address] [facility] COMPREHEN SIVE METABOLIC PANEL ALBUMIN [MASS/VOLUM E] IN SERUM OR PLASMA 4.3 g/dL 3.4 - 5.0 05/23 Specimen Type: PLASMA No comment entered. Ordering Provider: GABBY ZAMAN Report Released Date/Time: May 24, 2023 07:49 AM Reporting Lab: [facility] [address] [place] [address] Performing Lab: [facility] [address] [facility] COMPREHEN SIVE METABOLIC PANEL BILIRUBIN.T OTAL [MASS/VOLUM E] IN SERUM OR PLASMA 0.8 mg/dL 0.2 - 1.2 05/23 Specimen Type: PLASMA No comment entered. Ordering Provider: GABBY ZAMAN Report Released Date/Time: May 24, 2023 07:49 AM Reporting Lab: [facility] [address] [place] [address] Performing Lab: [facility] [address] [facility] COMPREHEN SIVE METABOLIC PANEL ALKALINE PHOSPHATASE [ENZYMATIC ACTIVITY/VO LUME] IN SERUM OR PLASMA 54 U/L 40 - 150 05/23 Specimen Type: PLASMA No comment entered. Ordering Provider: GABBY ZAMAN Report Released Date/Time: May 24, 2023 07:49 AM Reporting Lab: [facility] [address] [place] [address] Performing Lab: [address] [facility] COMPREHEN SIVE METABOLIC PANEL ASPARTATE AMINOTRANSF ERASE [ENZYMATIC ACTIVITY/VO LUME] IN SERUM OR PLASMA 16 U/L 5 - 34 05/23 Specimen Type: PLASMA No comment entered. Ordering Provider: GABBY ZAMAN Report Released Date/Time: May 24, 2023 07:49 AM Reporting Lab: [facility] [address] [place] [address] Performing Lab: [place] [address] [facility] COMPREHEN SIVE METABOLIC PANEL ALANINE AMINOTRANSF ERASE [ENZYMATIC ACTIVITY/VO LUME] IN SERUM OR PLASMA 16 U/L 8 - 40 05/23 Specimen Type: PLASMA No comment entered. Ordering Provider: GABBY ZAMAN Report Released Date/Time: May 24, 2023 07:49 AM Reporting Lab: [facility] [address] [place] [address] Performing Lab: [address] [facility] COMPREHEN SIVE METABOLIC PANEL GLOMERULAR FILTRATION RATE/1.73 SQ M.PREDICTED [VOLUME RATE/AREA] IN SERUM, PLASMA OR BLOOD BY CREATININE- BASED FORMULA (CKD-EPI 2020) 110 05/23 Specimen Type: PLASMA No comment entered. Ordering Provider: GABBY ZAMAN Report Released Date/Time: May 24, 2023 07:49 AM Reporting Lab: [place] [address] Performing Lab: [address] [facility] HGA1C HEMOGLOBIN A1C/HEMOGLO BIN.TOTAL IN BLOOD 5.4 4.0 - 6.0 05/23 Specimen Type: BLOOD No comment entered. Ordering Provider: GABBY ZAMAN Report Released Date/Time: May 24, 2023 07:49 AM Reporting Lab: [place] [address] Performing Lab: [address] [facility] LIPID PANEL (MA) CHOLESTEROL [MASS/VOLUM E] IN SERUM OR PLASMA 176 mg/dL 0 - 200 05/23 Specimen Type: PLASMA No comment entered. Ordering Provider: GABBY ZAMAN Report Released Date/Time: May 24, 2023 07:49 AM Reporting Lab: [facility] [address] [place] [address] Performing Lab: [place] [address] [facility] [place] [facility] LIPID PANEL (MA) TRIGLYCERID E [MASS/VOLUM E] IN SERUM OR PLASMA 120 mg/dL 0 - 150 05/23 Specimen Type: PLASMA No comment entered. Ordering Provider: GABBY ZAMAN Report Released Date/Time: May 24, 2023 07:49 AM Reporting Lab: [place] [address] Performing Lab: [address] [facility] LIPID PANEL (MA) CHOLESTEROL IN LDL [MASS/VOLUM E] IN SERUM OR PLASMA BY CALCULATION 107 mg/dL 05/23 Specimen Type: PLASMA No comment entered. Ordering Provider: GABBY ZAMAN Report Released Date/Time: May 24, 2023 07:49 AM Reporting Lab: [place] [address] Performing Lab: [address] [facility] LIPID PANEL (MA) CHOLESTEROL IN HDL [MASS/VOLUM E] IN SERUM OR PLASMA 45 mg/dL 40 05/23 Specimen Type: PLASMA No comment entered. Ordering Provider: GABBY ZAMAN Report Released Date/Time: May 24, 2023 07:49 AM Reporting Lab: [place] [address] Performing Lab: [address] [facility] RHEUMATOI D FACTOR (MA) RHEUMATOID FACTOR [UNITS/VOLU ME] IN SERUM OR PLASMA <14[IU]/ mL 05/23 Specimen Type: SERUM Comment: REFERENCE RANGE: <14 IU/mL Test Performed by Juan Callaway, [employer] [facility], [address] [place] [address] Abdulaziz Bernstein M.D., Ph.D., Director of Laboratorie s , CLIA [id number] Ordering Provider: LAMCZIK,GABBY ECCA A PA Report Released Date/Time: May 24, 2023 07:49 AM Reporting Lab: [facility] [address] [address] Performing Lab: [facility] [address] [facility] [address] [facility] SEDRATE (MA-EV) ERYTHROCYTE SEDIMENTATI ON RATE 11 mm/h 0 - 20 05/23 Specimen Type: BLOOD No comment entered. Ordering Provider: GABBY ZAMAN Report Released Date/Time: May 24, 2023 07:48 AM Reporting Lab: [facility] [address] [place] [address] Performing Lab: [address] CB TSH (MA-PB-ST L) THYROTROPIN [UNITS/VOLU ME] IN SERUM OR PLASMA 0.770 u[IU]/mL 0.470 - 5.000 05/23 Specimen Type: SERUM No comment entered. Ordering Provider: GABBY ZAMAN Report Released Date/Time: May 24, 2023 07:49 AM Reporting Lab: [facility] [address] [address] Performing Lab: [address] [facility] URIC ACID URATE [MASS/VOLUM E] IN SERUM OR PLASMA 6.2 mg/dL 3.5 - 7.2 05/23 Specimen Type: PLASMA No comment entered. Ordering Provider: GABBY ZAMAN Report Released Date/Time: May 24, 2023 07:48 AM Reporting Lab: [facility] [address] [place] [address] Performing Lab: [facility] [address] [place] [address] [facility] URINE ALBUMIN PANEL (MA) ALBUMIN/CRE ATININE [MASS RATIO] IN URINE 6.5 mg/g - 30 05/23 Specimen Type: URINE No comment entered. Ordering Provider: GABBY ZAMAN Report Released Date/Time: May 24, 2023 07:48 AM Reporting Lab: [place] [address] [place] [id number] Performing Lab: [facility] [address] [facility] URINE ALBUMIN PANEL (MA) CREATININE [MASS/VOLUM E] IN URINE 184 mg/dL 05/23 Specimen Type: URINE No comment entered. Ordering Provider: GABBY ZAMAN Report Released Date/Time: May 24, 2023 07:48 AM Reporting Lab: [facility] [address] [place] [address] Performing Lab: [address] URINE ALBUMIN PANEL (MA) MICROALBUMI N [MASS/VOLUM E] IN URINE 1.2 mg/dL 05/23 Specimen Type: URINE No comment entered. Ordering Provider: GABBY ZAMAN Report Released Date/Time: May 24, 2023 07:48 AM Reporting Lab: [facility] [address] [place] [address] Performing Lab: [address] [facility] VITAMIN D, 25-HYDROX Y 25-HYDROXYV ITAMIN D3 [MASS/VOLUM E] IN SERUM OR PLASMA 25.1 ng/mL 30 - 96 05/23 L Specimen Type: SERUM No comment entered. Ordering Provider: GABBY ZAMAN Report Released Date/Time: May 24, 2023 07:49 AM Reporting Lab: [place] [address] Performing Lab: [address] Vital Signs Combined list of inpatient and outpatient Vital Signs from Department of Defense and Veterans Affairs, ranging from 12 months to all on record, depending upon the facility. Vital Sign Value Date Comments Source SYSTOLIC BLOOD PRESSURE 116 05/27/2023 12:47:34 [facility] DIASTOLIC BLOOD PRESSURE 70 05/27/2023 12:47:34 [facility] PULSE OXIMETRY 96 05/27/2023 12:47:34 [facility] WEIGHT 250 05/27/2023 12:47:34 [facility] BMI 36 kg/m2 05/27/2023 12:47:34 [facility] PAIN 6 05/27/2023 12:47:34 [facility] HEIGHT 69.5 05/27/2023 12:47:34 [facility] TEMPERATURE 98.2 05/27/2023 12:47:34 [facility] PULSE 75 05/27/2023 12:47:34 [facility] RESPIRATION 16 05/27/2023 12:47:34 [facility] Encounters Combined list of: 1) Encounters from Department of [facility] Affairs facilities going backup to the last 18 months, not all [place] inpatient encounters are included; 2) Encounters from the Department of [facility] facilities going backup to 280 months. Location Location Details Encounter Type Encounter Number Reason For Visit Attending Provider ADM Date DC Date Status Disposition Source [facility] Outpatient Encounter [id number] 11/27 [facility] PRO PHONE CALL 5-10 MIN [id number] Diagnos is: ICD-10- CM F41.9 Anxiety disorde r, unspeci fied ROLANDO,CHACHO ER R 11/29 [facility] Outpatient Encounter [id number] 12/28 [facility] HC PRO PHONE CALL 5-10 MIN [id number] Diagnos is: ICD-10- CM F41.9 Anxiety disorde r, unspeci fied ROLANDO,CHACHO ER R 01/08 [facility] Outpatient Encounter [id number] 01/24 [facility] Outpatient Encounter [id number] 02/12 [facility] Outpatient Encounter [id number] SALLY COVINGTON 02/12 [facility] Outpatient Encounter [id number] 02/[address] [facility] Outpatient Encounter [id number] 02/28 [facility] Outpatient Encounter [id number] 04/08 [facility] OFFICE O/P EST MOD 30 MIN [id number] Diagnos is: ICD-10- CM G47.00 Insomni a, unspeci fied AUSTYN,RE GAYE A PA 05/26 [facility] Outpatient Encounter [id number] 05/26 [facility] Outpatient Encounter [id number] CANDE KELLER 07/01 [facility] Outpatient Encounter [id number] 07/22 [facility] Outpatient Encounter [id number] 09/30 [facility] Outpatient Encounter [id number] [facility] Encounter [id number] 05/14 [facility] Outpatient Encounter [id number] 05/15 [facility] Social History Combined list of available smoking, tobacco, and other social history from Department of Defense and Veterans Affairs facilities. Social History Type Response Date Comment Sourc e Tobacco smoking status NHIS [facility]-TOBACCO FORMER USER 07/26/2022 [facility] History of tobacco use NH-TOBACCO QUIT 5 TO < 15 YRS 07/26/2022 [facility] History of tobacco use [facility]-TOBACCO FORMER USER 03/09/2021 [facility] History of tobacco use QUIT TOBACCO IN T HE LAST 12 MONTHS 06/10/2008 [facility] Plan of Care List of future care activities from Department of [facility] Affairs facilities. Additional future care activities may be listed in the Assessment and Plan section. Date/Time Care Activity Care Activity Detail Facili ty 05/25/2024 AMBULATORY - MEDICINE AMBULATORY - MEDICI NE [facility] 05/18/2024 Laboratory - State Comptroller ry Order CBC BLOOD SP ONCE [facility] 05/18/2024 Laboratory - State Comptroller ry Order COMPREHENSIVE METABOLIC PANEL GREEN LI/HEP BLD/PLAS PLASMA SP ONCE [facility] 05/18/2024 Laboratory - State Comptroller ry Order HGA1C BLOOD SP ONCE [facility] 05/18/2024 Laboratory - State Comptroller ry Order TSH (MA-PB) GOLD/RED SST SERUM SP ONCE [facility] 05/18/2024 Laboratory - State Comptroller ry Order LIPID PANEL (MA) GREEN LI/HEP BLD/PLAS PLASMA SP ONCE [facility] 05/18/2024 Laboratory - State Comptroller ry Order VITAMIN D, 25-HYDROXY GOLD/RED SST SERUM SP [facility] 05/18/2024 Laboratory - State Comptroller ry Order URINE ALBUMIN PANEL (MA) URINE SP [facility] 05/18/2024 Laboratory - State Comptroller ry Order CLEAN CATCH URINALYSIS (MA-EV) URINE,CLEAN CATCH SP ONCE [facility] 05/18/2024 Laboratory - State Comptroller ry Order CYSTATIN C EGFR PANELS (STL-PB-MA) GREEN LI/HEP BLD/[facility]
--- OUTSIDE RECORDS SUMMARY | 2024-05-22 09:14 | XMS_ITS | Encounter Summary ---
Author Name Department of Vetera Affairs (MD) Organization [facility] of [facility] (MD) Address [address] [place] [address] Care Team Providers Care Teacher Selection Specialist Name Role Phone JOSÉ ZAMAN Primary Care Provider Unavailab le Selected Encounter This section includes the information on record at MD for the Encounter. Date/Time Encounter Type Encounter Description Reason Provider Source May 27, 2023 12:45 PM OFFICE O/P EST MOD 30 MIN PRIMARY CARE/MEDICINE ICD-10-CM G47.00 Insomnia, unspecified AUSTYN,REBECC A A DANIELLE [facility] Encounter Template Text not used by MD Assessments - Encounter Diagnoses This section includes the primary and secondary diagnoses documented for the Encounter. Date/Time Primary/Secondary Diagnosis Diagnosis Name Provider Source May 27, 2023 07:38 PM PRIMARY Insomnia, unspecified AUSTYN,REBECC A A DANIELLE [facility] May 27, 2023 07:38 PM SECONDARY Anxiety disorder, unspecified MARCUSCZIK,REBECC A A PA [facility] May 27, 2023 07:38 PM SECONDARY Chronic kidney disease, stage 1 AUSTYNREBECC A A PA [facility] May 27, 2023 07:38 PM SECONDARY Obesity, unspecified AUSTYN,REBECC A A PA [facility] May 27, 2023 07:38 PM SECONDARY Obstructive sleep apnea (adult) (pediatric) AUSTYNREBECC A A PA [facility] May 27, 2023 07:38 PM SECONDARY Primary osteoarthritis, right shoulder ARIAN ZAMAN Shantel SANTOS [facility] May 27, 2023 07:38 PM SECONDARY Type 2 diabetes mellitus without complications ARIAN ZAMAN Shantel SANTOS [facility] May 27, 2023 07:38 PM SECONDARY Vitamin D deficiency, unspecified ARIAN ZAMAN Shantel SANTOS [facility] Plan of Treatment: Future Appointments (+ 6 months) and Future Tests (+/- 45 days) The Plan of Treatment section includes future care activities for the patient [facility] This section includes future appointments and future orders which are active, pending or scheduled. Future Appointments This section includes appointments that were scheduled to occur 6 months from the date of the Encounter, up to a maximum of 20 appointments. The data comes from all [facility] facilities. Appointment Date/Time Appointment Type Appointme nt Facility Name July 19, 2023 01:30 PM AMBULATORY - MEDICINE [facility] Sep 09, 2023 11:00 AM AMBULATORY - SURGERY [facility] Sep 27, 2023 09:45 AM AMBULATORY - MEDICINE [facility] Lab Results: +/- 30 days of the encounter This section includes the Chemistry and Hematology Lab Results on record with MD for the patient. Radiology Reports and Pathology Reports are provided separately, in subsequent sections. Lab Results This section contains the Chemistry/Hematology Results that were resulted 30 days before or 30 daysafter the date of the Encounter. Date/Time Source Result Type Result - Unit Interpretation Reference Range Comment May 24, 2023 08:01 AM [facility] ANTINUCLEAR AB (PB-MA) Specimen Type: SERUM Comment: JOSE A IFA is a first line screen for detecting the presence of up to approximately 150 autoantibodies in various autoimmune diseases. A negative JOSE A IFA result suggests JOSE A-associated autoimmune disease is not present at this time, but is not definitive. If there is high clinical suspicion for Sjogren's Syndrome, testing for anti-SS-A/Ro antibody should be considered. Anti-Yvonne-1 antibody should be considered for clinically suspected inflammatory myopathies. AC-0: Negative International Consensus on JOSE A Patterns https://doi.org/ 10.1515/cclm-201 8-0052 For additional information, please refer to http://education .Guardium/faq/BNB548 (This link is being provided for informational/ educational purposes only.) Test Performed by [facility], [employer] [facility], [address] [place] [address] Abdulaziz Bernstein M.D., Ph.D., Director of Laboratories , CLIA [id number] Ordering Provider: JOSÉ ZAMAN Report Released Date/Time: May 24, 2023 07:48 AM Reporting Lab: [address] [id number] Performing Lab: [address] ANTINUCLEAR AB (PB-MA) Negative Negative May 24, 2023 08:01 AM [facility] RHEUMATOID FACTOR (MA) Specimen Type: SERUM Comment: REFERENCE RANGE: <14 IU/mL Test Performed by [facility], [employer] [facility], [address] [place] [address] Abdulaziz Bernstein M.D., Ph.D., Director of Laboratories , CLIA [id number] Ordering Provider: JOSÉ ZAMAN Report Released Date/Time: May 24, 2023 07:49 AM Reporting Lab: [address] [id number] Performing Lab: [address] RHEUMATOID FACTOR (MA) <14 [IU]/mL SEE BELOW May 24, 2023 08:01 AM [facility] URIC ACID Specimen Type: PLASMA No comment entered. Ordering Provider: JOSÉ ZAMAN Report Released Date/Time: May 24, 2023 07:48 AM Reporting Lab: [address] [id number] Performing Lab: [address] [address] URIC ACID 6.2 mg/dL 3.5-7.2 May 24, 2023 08:01 AM [facility] SEDRATE (MA-EV) Specimen Type: BLOOD No comment entered. Ordering Provider: JOSÉ ZAMAN Report Released Date/Time: May 24, 2023 07:48 AM Reporting Lab: [place] [id number] Performing Lab: [place] [id number] SEDRATE (MA-EV) 11 mm/h 0-20 May 24, 2023 08:01 AM [facility] URINE ALBUMIN PANEL (MA) Specimen Type: URINE No comment entered. Ordering Provider: JOSÉ ZAMAN Report Released Date/Time: May 24, 2023 07:48 AM Reporting Lab: [place] [id number] Performing Lab: [place] [address] uACR (PB-MA) 6.5 mg/g <=30 CREATININE (URINE)(MA) 184 mg/dL URINE ALBUMIN (MA) 1.2 mg/dL May 24, 2023 08:01 AM [facility] HGA1C Specimen Type: BLOOD No comment entered. Ordering Provider: JOSÉ ZAMAN Report Released Date/Time: May 24, 2023 07:49 AM Reporting Lab: [place] [phone] Performing Lab: [place] [id number] HGA1C 5.4 4.0-6.0 May 24, 2023 08:01 AM [facility] COMPREHENSIVE METABOLIC PANEL Specimen Type: PLASMA No comment entered. Ordering Provider: JOSÉ ZAMAN Report Released Date/Time: May 24, 2023 07:49 AM Reporting Lab: [place] [address] Performing Lab: [place] [address] CREATININE 0.9 mg/dL .7-1.3 UREA NITROGEN 18 mg/dL 9.0-25.0 GLUCOSE 84 mg/dL 72-99 SODIUM 138 meq/L 136-145 POTASSIUM 4.2 meq/L 3.5-5 CHLORIDE 105 meq/L 98-107 CARBON DIOXIDE 23 meq/L 22-31 CALCIUM 8.9 mg/dL 8.4-10.4 PROTEIN 7.1 g/dL 6.0-8.6 ALBUMIN 4.3 g/dL 3.4-5.0 TOTAL BILIRUBIN 0.8 mg/dL 0.2-1.2 ALKALINE PHOSPHATASE 54 U/L 40-150 AST/SGOT 16 U/L 5-34 ALT/SGPT 16 U/L 8-40 EGFR (CKD-EPI 2020) 110 May 24, 2023 08:01 AM [facility] LIPID PANEL (MA) Specimen Type: PLASMA No comment entered. Ordering Provider: JOSÉ ZAMAN Report Released Date/Time: May 24, 2023 07:49 AM Reporting Lab: [address] [id number] Performing Lab: [address] [address] CHOLESTEROL 176 mg/dL 0-200 TRIGLYCERIDE 120 mg/dL 0-150 CALCULATED LDL 107 mg/dL HDL(New) 45 mg/dL >=40 May 24, 2023 08:01 AM [facility] TSH (MA-PB-STL) Specimen Type: SERUM No comment entered. Ordering Provider: JOSÉ ZAMAN Report Released Date/Time: May 24, 2023 07:49 AM Reporting Lab: [address] [address] Performing Lab: [address] [address] TSH 0.770 u[IU]/mL 0.470-5.000 May 24, 2023 08:01 AM [facility] VITAMIN D, 25-HYDROXY Specimen Type: SERUM No comment entered. Ordering Provider: JOSÉ ZAMAN Report Released Date/Time: May 24, 2023 07:49 AM Reporting Lab: [address] [phone] Performing Lab: [address] [address] VITAMIN D, 25-HYDROXY 25.1 ng/mL L 30-96 May 24, 2023 08:01 AM [facility] TESTOSTERONE, TOTAL (PB-MA) Specimen Type: SERUM No comment entered. Ordering Provider: JOSÉ ZAMAN Report Released Date/Time: May 24, 2023 07:49 AM Reporting Lab: [place] [address] Performing Lab: [place] [address] TESTOSTERONE, TOTAL (PB-MA) 268 ng/dL 221-871 May 24, 2023 08:01 AM [facility] URINALYSIS (MA-EV) Specimen Type: URINE Comment: Microscopic not indicated Ordering Provider: JOSÉ ZAMAN Report Released Date/Time: May 24, 2023 07:49 AM Reporting Lab: [place] [address] Performing Lab: [place] [address] URINE COLOR Light-Yellow Yellow SPECIFIC GRAVITY >1.030 H 1.005-1.029 UROBILINOGEN Normal mg/dL 0.1-1.0 U.BILIRUBIN Negative mg/dL Negative U.KETONES Negative mg/dL Negative U.PROTEIN Negative mg/dL Negative U.PH 6.0 5.0-8.0 APPEARANCE Clear Clear U.BLOOD Negative mg/dL Negative U.NITRITE Negative mg/dL Negative U.LEUK.EST. Negative Negative URINE GLUCOSE (PB-MA-EV) >1000 mg/dL H Negative May 24, 2023 08:01 AM [facility] CBC Specimen Type: BLOOD No comment entered. Ordering Provider: JOSÉ ZAMAN Report Released Date/Time: May 24, 2023 07:49 AM Reporting Lab: [place] [address] Performing Lab: [place] [address] WBC 8.8 10*3/uL 3.6-11.2 RBC 4.83 10*6/uL 4.10-5.70 HGB 14.7 g/dL 13.1-16.8 HCT 44.0 38.2-48.4 MCV 91.1 fL 80.0-100.0 MCH 30.4 pg 27.0-34.0 MCHC 33.4 g/dL 33.0-36.0 PLT 283 10*3/uL 150-400 MPV 9.9 fL 7.5-11.2 RDW 13.0 11.8-15.1 LYMPHOCYTES, AUTO % 39.4 MONOCYTES, AUTO % 6.5 NEUTROPHILS, AUTO % 46.5 EOSINOPHILS, AUTO % 6.6 BASOPHILS, AUTO % 0.7 LYMPHOCYTES, ABSOLUTE 3.48 10*3/uL 0.77-4.50 MONOCYTES, ABSOLUTE 0.57 10*3/uL 0.19-0.8 NEUTROPHILS, ABSOLUTE 4.11 10*3/uL 2.10-8.00 EOSINOPHILS, ABSOLUTE 0.58 10*3/uL 0.00-0.60 BASOPHILS, ABSOLUTE 0.06 10*3/uL 0.00-0.20 IMMATURE GRANS, AUTO % 0.3 IMMATURE GRANS, AUTO ABS 0.03 10*3/uL 0.00-0.05 Vital Signs: All taken on the encounter date This section contains inpatient and outpatient Vital Signs collected on the date of the Encounter. Date/Time Temperature Pulse Blood Pressure Respiratory Rate SP02 Pain Height Weight Body Mass Index Source May 27, 2023 12:47 PM 98.2 75 116/70 16 96 6 69.5 250 36 [facility] Social History: Smoking Status (Most current) and Tobacco Use (All prior to encounter date) This section includes the most current, and the historical, smoking and tobacco- related health factors from the MD facility where the Encounter took place. Current Smoking Status This section includes the most current smoking, or tobacco-related health factor, from the MD facility where the Encounter took place. Date/Time Current Smoking Status Comment Travis ity July 26, 2022 09:30 AM MD-TOBACCO FORMER USER [facility] Tobacco Use History This section includes a history of the smoking, or tobacco-related health factors, that were collected on or before the date of the Encounter. The data comes from the MD facility where the Encounter took place. Date/Time Smoking Status/Tobacco Use Comment F acmary July 26, 2022 09:30 AM MD-TOBACCO QUIT 5 TO < 15 YRS [facility] Mar 09, 2021 09:30 AM MD-TOBACCO FORMER USER [facility] Mar 09, 2021 09:30 AM VA-TOBACCO QUIT 5 TO < 15 YRS [facility] Encounter Notes: All associated encounter notes This section contains the clinical notes associated to the Encounter. Date/Time Encounter Note(s) Provider Source Jun 16, 2023 08:09 PM NURSING NOTE: LOCAL TITLE: TEST RESULT LETTER MA STANDARD TITLE: NURSING NOTE DATE OF NOTE: JUN 16, 2023@20:09 ENTRY DATE: JUN 16, 2023@20:10:03 AUTHOR: JOSÉ ZAMAN EXP COSIGNER: URGENCY: STATUS: COMPLETED JUN 16, 2023 ABDULAZIZ BENAVIDEZ [address], [place] [address] Dear Abdulaziz Benavidez, Your provider has reviewed your lab results. Chemistry These are tests for kidney function and chemical balance In general, the normal ranges for these tests are: SODIUM 136 - 145 POTASSIUM 3.5 - 5.0 CARBON DIOXIDE (CO2) 22 - 31 UREA NITROGEN (BUN) 10 - 20 CREATININE 0.7 - 1.3 (M) 0.6 - 1.1 (F) YOUR RESULTS: SODIUM 138 meq/L 05/24/2023 08:01 POTASSIUM 4.2 meq/L 05/24/2023 08:01 CARBON DIOXIDE 23 meq/L 05/24/2023 08:01 CREATININE 0.9 mg/dL 05/24/2023 08:01 UREA NITROGEN 18 mg/dL 05/24/2023 08:01 These readings are within normal limits. Glucose In general, 72-99 is considered the normal range for Glucose (Blood Sugar) . GLUCOSE 84 mg/dL 05/24/2023 08:01 These readings are within normal limits. Hemoglobin A1C Gives us information about diabetes (sugar or glucose) control over the past 3 months. Your target is to keep your A1C below 7. Values obtained from A1C measurements can vary. For typical A1C assays, a reported value of 7.0 could actually be between 6.72 and 7.28 if measured by a reference method. A reported value of 9.0 could actually be between 8.73 and 9.27. Ref: ngsp Hemoglobin A1c In general, 4-6 is considered the normal range for Hemoglobin A1C. HGA1C 5.4 % 05/24/2023 08:02 Acceptable Hemoglobin/Hematocrit These tests show if you are anemic. In general, the normal ranges for these tests are: HEMOGLOBIN 13.1 - 16.8 (M) 11.0 - 14.9 (F) HEMATOCRIT 38.2 - 48.4 (M) 32.6 - 43.4 (F) - YOUR RESULTS: HGB 14.7 g/dL 05/24/2023 08:02 Hematocrit 44.0 % (05/24/23 08:02) These readings are within normal limits. Lipid Profile High cholesterol and triglycerides (lipids) are risk factors for heart disease. Your cholesterol should fall between 140 and 200, and your triglyceride level should fall between 0 and 150. HDL is the good cholesterol and should ideally be greater than 40. LDL is the bad cholesterol and optimal levels should be less than 100 (near optimal is between 100 and 130). TRIGLYCERIDE 120 mg/dL 05/24/2023 08:01 CHOLESTEROL 176 mg/dL 05/24/2023 08:01 HDL(New) 45 mg/dL 05/24/2023 08:01 CALCULATED LDL 107 mg/dL 05/24/2023 08:01 These readings are within normal limits. Liver These are tests for liver function In general, the normal ranges for these tests are: PROTEIN,TOTAL 6.0 - 8.6 ALBUMIN 3.4 - 5.0 TOTAL BILIRUBIN 0.2 - 1.0 ALKALINE PHOSPATASE 40 - 150 SGOT 5 - 34 SGPT 8 - 40 YOUR RESULTS: PROTEIN 7.1 g/dL 05/24/2023 08:01 ALBUMIN 4.3 g/dL 05/24/2023 08:01 TOTAL BILIRUBIN 0.8 mg/dL 05/24/2023 08:01 ALKALINE PHOSPHATASE 54 U/L 05/24/2023 08:01 AST/SGOT 16 U/L 05/24/2023 08:01 ALT/SGPT 16 U/L 05/24/2023 08:01 These readings are within normal limits. Thyroid Stimulating Hormone (TSH)/Free T4 These tests are used to check for underactive or overactive thyroid. In general, 0.47 - 5.0 is considered the normal range for TSH. 0.7-1.48 is considered the normal range for Free T4. TSH 0.770 ulU/mL 05/24/2023 08:02 No data available for: FREE T4 (MA-PB) These readings are within normal limits. Vitamin D Helps promote stronger bones. In general, 30 - 96 is considered the normal range for Vitamin D. VITAMIN D, 25-HYDROXY 25.1 L ng/mL 05/24/2023 08:02 These results are abnormal vitamin D level is low. Your vitamin D supplement was re-ordered and recommended to be restarted White Blood Cells (WBC)/Platelets These tests are used to check for infection or other blood conditions. In general, 3.6 - 11.2 is considered the normal range for WBC. 150-400 is considered the normal range for Platelets. WBC 8.8 10*3/uL (05/24/23 08:02) PLT 283 10*3/uL 05/24/2023 08:02 These readings are within normal limits. Your provider has reviewed your test results, no special follow-up is required at this time. Please continue the same medications or treatments you have been doing. If you have any questions or concerns about your test results, please contact the [facility] [phone] between the hours of 8:30a - 4p Saturday through Saturday Future Appointments: 07/19/2023 13:30 MA-TECH INTERN SLEEP MED 09/09/2023 11:00 MA-OPTOMETRY 3A 05/18/2024 09:30 MA-MTV [facility] ONLY [place] 05/25/2024 09:30 MA-MTV PACT 3 PCP JOSÉ SANTOS PHYSICIAN [employer] PROFESSIONAL CERTIFIED JOSÉ ZAMAN [facility] May 28, 2023 12:36 PM EDUCATION NOTE: LOCAL TITLE: AFTER VISIT SUMMARY MA STANDARD TITLE: EDUCATION NOTE DICT DATE: MAY 28, 2023@12:36:50 ENTRY DATE: MAY 28, 2023@12:36:50 DICTATED BY: JOSÉ ZAMAN COSIGNER: URGENCY: STATUS: COMPLETED The patient was provided with a copy of an after-visit summary at the conclusion of the visit. The after-visit summary includes information pertaining to the patient's encounter, including diagnoses, vital signs, medications, and new orders, as well as a list of any upcoming appointments and information regarding the patient's ongoing care. The patient's medications were reviewed with the patient by the provider and were provided to the patient as an updated list of medications. The patient was instructed to inform the provider of any medication changes or discrepancies that were noted. Otherwise, the patient was instructed to continue the medications as prescribed. A copy of the after-visit summary provided to the patient is available in [employer]. SCANNED DOCUMENT SIGNATURE NOT REQUIRED Electronically Filed: 05/28/2023 by: VERONICA HERNANDEZ LPN, REBECCA A PA [facility] May 27, 2023 01:33 PM MEDICATION MGT NOT E: LOCAL TITLE: MEDICATION RECONCILIATION (REVISED) MA STANDARD TITLE: MEDICATION MGT NOTE DATE OF NOTE: MAY 27, 2023@13:33 ENTRY DATE: MAY 27, 2023@13:33:07 AUTHOR: JOSÉ ZAMAN COSIGNER: URGENCY: STATUS: COMPLETED MAY 27, 2023 [place] [id number] The Essential Med List for Review which includes the patient's active VA prescriptions and if applicable, remote VA prescriptions, non-VA prescriptions, and discontinued VA prescriptions within the last 90 days and known allergies including local and remote allergies have been reviewed. Yes Allergies/ADR LOCAL AND REMOTE: FACILITY ALLERGY/ADR -------- No Remote Allergy/ADR Data available for this patient [facility] The below is the most current list of medications from all sources that the should be taking: Active and Recently Outpatient Medications (including Supplies): Active Outpatient Medications Status 1) EMPAGLIFLOZIN 25MG TAB TAKE ONE-HALF TABLET BY MOUTH ACTIVE (S) ONCE A DAY 2) ESCITALOPRAM OXALATE 20MG TAB TAKE ONE TABLET BY ACTIVE (S) MOUTH ONCE A DAY FOR ANXIETY 3) LISINOPRIL 5MG TAB TAKE ONE-HALF TABLET BY MOUTH ONCE ACTIVE (S) A DAY FOR HEART OR BLOOD PRESSURE 4) MELOXICAM 15MG TAB TAKE ONE TABLET BY MOUTH ONCE A ACTIVE DAY TAKE WITH FOOD DO NOT TAKE OTHER NSAIDS WHILE ON THIS MED 5) METFORMIN HCL 1000MG TAB TAKE ONE-HALF TABLET BY ACTIVE MOUTH TWICE A DAY WITH MEALS FOR DIABETES TAKE WITH FOOD. AVOID ALCOHOL. DISCONTINUE BEFORE GETTING XRAY DYE. 6) SIMVASTATIN 40MG TAB TAKE ONE-HALF TABLET BY MOUTH ACTIVE (S) EVERY EVENING TO LOWER CHOLESTEROL Pending Outpatient Medications Status 1) CHOLECALCIF 50MCG (D3-2,000UNIT) TAB TAKE ONE TABLET PENDING BY MOUTH ONCE A DAY FOR VITAMIN D DEFICIENCY. 2) MELOXICAM 15MG TAB TAKE ONE TABLET BY MOUTH ONCE A PENDING DAY TAKE WITH FOOD DO NOT TAKE OTHER NSAIDS WHILE ON THIS MED 3) METFORMIN HCL 1000MG TAB TAKE ONE-HALF TABLET BY PENDING MOUTH TWICE A DAY WITH MEALS TAKE WITH FOOD. AVOID ALCOHOL. DISCONTINUE BEFORE GETTING XRAY DYE. 4) TRAZODONE HCL 100MG TAB TAKE ONE-HALF TABLET BY MOUTH PENDING AT BEDTIME 10 Total Medications TO HELP YOU UNDERSTAND YOUR DRUG LIST ACTIVE ...means that you are presently taking these meds. PENDING ..means that the medication has just been renewed, or, just ordered. HOLD .....means that the medication is active on your list, but will not be processed until pharmacy receives further instructions from you or your doctor to proceed with filling the prescription for delivery. NON-VA ...means you are getting the medication from somewhere besides the [facility]. MEDICATIONS: A prescription which is too old to fill. This does not refer to the expiration date of the medication in the container The patients medication profile has been reviewed. Medications and/or dosage may vary upon arrival in the mail. Please read and follow the directions on your bottles carefully. MEDICATION PATIENT EDUCATION: It is very important for your safety that you keep an accurate medication list, which includes your vitamins, herbals, and medications purchased from an outside pharmacy. Make sure to bring this medication list with you at all times. It is your Responsibility to update your list when medications are changed, added or discontinued and provide this updated list to all providers. Medication Changes New Medication(s): List new medications:trazodone for sleep restart Vitamin D restart Melixocam Medication education and counseling for new medications added today was provided to the [place] based on his individual needs. This included why the medication was prescribed, how they should take it and for how long, what to expect from it, what happens if medication is not taken as prescribed and any possible adverse drug-drug interactions and side effects. By signing this note I certify that patient or caregiver or family member understood my instructions. A copy of the updated medication list was given to the patient and/or caregiver that included the medications added, changed, and/or discontinued today. Medication list pertinent to this visit reviewed with patient. Medication discrepancies identified and addressed You must follow up with another healthcare provider about the following medication(s): respiratory therapy referral A return to clinic order was placed for [place]. Future Appointments:09/09/2023 11:00 MA-OPTOMETRY 3A Instruction (optional): /seema/ JOSÉ SANTOS PHYSICIAN [employer] PROFESSIONAL CERTIFIED Signed: 05/27/2023 13:35 JOSÉ ZAMAN [facility] May 27, 2023 01:09 PM [facility] NOTE: LOCAL TITLE: [facility] NOTE MA STANDARD TITLE: PRIMARY CARE OUTPATIENT NOTE DATE OF NOTE: MAY 27, 2023@13:09 ENTRY DATE: MAY 27, 2023@13:09:47 AUTHOR: JOSÉ ZAMAN EXP COSIGNER: URGENCY: STATUS: COMPLETED [place] presents today to [facility] for follow up evaluation and management of 's active Medical problems and medications CC: F/U of chronic medical condition Private provider(s): None Community Care Provider(s): None [ ] Pt has brought all medication pill bottles with him/her today. [x ] Pt has NOT brought all medication pill bottles with him/her today. [ ] Pt unsure what medications he/she is taking at home. REVIEWED ALL CURRENT MEDICATION FOR NAME, DOSE, ROUTE, FREQUENCY AND PURPOSE CURRENT MEDICATIONS BROUGHT TO CLINIC VISIT AND COMPAIRED TO MD MEDICATION LIST? (x )YES ( ) NO Says taking medications regularly without noticing any side effects * Patient states that they have DISCONTINUED the following medications: None NURSING NOTE SEEN HPI: 42 year old who presents today for routine f/u appt. presents to [facility]. Last PC visit 07/26/2022 [place] presents today requesting visit because of sleep problems. States has been going to bed about the same time every night 8-9:30 wants to go to sleep but cannot fall asleep. States he feels it is a combination of thoughts of what is going on around in the world and nobody is doing anything about it. States unable to turn thoughts off. States find himself unable to fall asleep lays for hours or sometimes will get up and then just stay up. States uses his CPAP but finds himself where he takes his mask off through the night ROS: General: no weight loss, no weakness, no anorexia,no fever or chills Skin: no new rash, no nonhealing lesion, no moles Respiratory: no SOB/cough or phlegm or hemoptysis CVS: no cp/or palpitations, no orthopnea or pnd GI: no abdominal pain/no nausea or vomiting, no diarrhea or constipation, no melena or hematochezia or hematemesis : no dysuria, no frequency or hematuria Musculoskeletal: Pain in the right shoulder. States history of frozen shoulder on the left. Received injection by [facility] and did physical therapy. States this has gone away but now starting to experience some pain in his right shoulder. Not using meloxicamstates ran out Psych: denies suicidal or homicidal ideations--denies feeling depressed States behavioral medicine services were all phone calls . He states did not feel that he made a connection with speaking to provider on phone. States that times since this was on the phone it was if he was talking to a robot . 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 12) Tobacco dependence in remission comment: 3 ppd x 4 yrs, reduced 1 ppd x 9 yrs comment: quit 2012. active cessation. 13) Tachycardia 14) Obstructive Sleep Apnea of Adult ([facility] [id number]) comment: per home sleep study September 2021 15) Rhinitis 16) Disorder of Shoulder Region ([facility] [id number]) comment: Mild degenerative right shoulder- xray 07/20/22 comment: Left shoulder undeterminate xray 07/20/22 comment: Left shoulder atraumatic diabetic adhesive capsulitis comment: [facility] cortisone injection 09/27/2022 17) Subjective tinnitus 18) Exposure to Potentially Hazardous Substance ([facility] [id number]) comment: - [place] reports history of exposure to burn pits. comment: -[place] reporting history of exposure to radiation. Allergies: STRAWBERRIES Medications: Active Outpatient Medications (including Supplies): Active Outpatient Medications Status 1) EMPAGLIFLOZIN 25MG TAB TAKE ONE-HALF TABLET BY MOUTH ACTIVE (S) ONCE A DAY 2) ESCITALOPRAM OXALATE 20MG TAB TAKE ONE TABLET BY ACTIVE (S) MOUTH ONCE A DAY FOR ANXIETY 3) LISINOPRIL 5MG TAB TAKE ONE-HALF TABLET BY MOUTH ONCE ACTIVE (S) A DAY FOR HEART OR BLOOD PRESSURE 4) MELOXICAM 15MG TAB TAKE ONE TABLET BY MOUTH ONCE A ACTIVE DAY TAKE WITH FOOD DO NOT TAKE OTHER NSAIDS WHILE ON THIS MED 5) METFORMIN HCL 1000MG TAB TAKE ONE-HALF TABLET BY ACTIVE MOUTH TWICE A DAY WITH MEALS FOR DIABETES TAKE WITH FOOD. AVOID ALCOHOL. DISCONTINUE BEFORE GETTING XRAY DYE. 6) SIMVASTATIN 40MG TAB TAKE ONE-HALF TABLET BY MOUTH ACTIVE (S) EVERY EVENING TO LOWER CHOLESTEROL Discussed each medication, name, dose, route, frequency, and indication SOCIAL HISTORY: Smoking Hx Yes [ ] No [ X] ALCOHOL: Yes [] No[ X] physical Exam: Sitting comfortably not in any distress Vitals: BP: 116/70 P: 75 R: 16 WT: 250 T: 98.2 HT: 69.5 Pain: 6 (05/27/2023 12:47) BMI: 36.5 General: alert,pleasant,cooperative and in no acute distress Skin: No Rash or Urticaria noted HEENT: conjunctiva clear, sclera nonicteric. no frontal or maxillary sinus tenderness to palpation. Ear canals patent no cerumen impaction. oropharynx is pink and moist no lesions Neck: no bruit, no jvd, no thyromegaly, no lymphadenopathy CVS: S1 S2 rate regular, no murmur LUNGS: Good air entry. Symmetric expansion. Clear to auscultation, no crackles or rhonchi ABDOMEN: Soft, Nontender, Bowel sounds present, no organomegaly, No CVA tenderness EXTREMITIES: No edema, no clubbing, no cyanosis MUSCULOSKELETAL: No focal tenderness TURNTABLE OPERATOR--no focal neuro deficit Assessment/Plan: * Medication Compliance Discussed BLOOD TEST AND XRAY RESULT DISCUSSED Stable, continue present management with changes as discussed in the plan ALL MEDICATION INFORMATION HAS BEEN REVIEWED WITH THE PT, INCLUDING NAME OF DRUG, DOSE, ROUTE, FEQUENCY, AND PURPOSE. PATIENT HAS BEEN ADVISED TO BRING ALL MEDICATION PILL BOTTLES WITH HIM/HER TO EVERY SINGLE APPOINTMENT. Reviewed all labs and discussed abnormal and normal in depth answering all questions and providing copies of lab results upon request 1) Diabetes mellitus -controlled. reviewed Hga1c goal. Discussed importance of diet and medication compliance. Reviewed zahra-i/ARB therapy. Discussed importance of routine eye exam and daily foot checks. A1c 5.4. Continue metformin and empagliflozin 2) Chronic kidney disease stage 1 -stable. Stage 1 CKD (GFR > or = 90) defined as kidney damage with normal or increased GFR. Considered at risk for progression of CKD. Reviewed zahra-i/ARB indication and use. Continue lisinopril 3) Vitamin D deficiencyrebound deficiency, likely related to supplement nonuse. Will restart vitamin D3 4) obesity - 2# wt regain. reviewed BMI and discussed health benefits of reaching and maintaining a healthy weight. Discussed diet recommendations: limit sodium particularly eating diet low in processed foods, limit added sugars and reduce saturated fat intake. Encouraged activity as tolerated. see #2 5) Anxiety/insomina- discussed with . reviewed [facility] services. consider re-referral in person visits, [facility]- declined. discussed medication will continue escitalopram, and add trazodone prn for sleep. plan respiratory referral for cpap reevaluation 6) Osteoarthritis of joint of right shoulder region- reviewed wi - restart meloxicam. encouraged HEP program. if not improved advised call consider imaging/Ortho 7) Tobacco dependence in remission comment: 3 ppd x 4 yrs, reduced 1 ppd x 9 yrs comment: quit 2012. active cessation.No recurrence 8) Tachycardiano recurrence 9) Obstructive Sleep Apnea of Adult ([facility] [id number]) comment: per home sleep study September 2021- see #5. respiratory therapy referral 10) Disorder of Shoulder Region ([facility] [id number]) comment: Mild degenerative right shoulder- xray 07/20/22 comment: Left shoulder undeterminate xray 07/20/22 comment: Left shoulder atraumatic diabetic adhesive capsulitis comment: [facility] cortisone injection 09/27/2022- see #6 11) Insomina- see #5, 9 * Weight: Weight: 250 lb [113.40 kg] (05/27/2023 12:47) Height: 69.5 in [176.5 cm] (05/27/2023 12:47) BMI: 36.5 Advised regarding [place] body weight Time spent: 30 minutes reviewing the 's record, tests, taking a history, examining the , discussing impression and treatment plan; Ordering appropriate medications; Entering return to clinic order, lab, imaging and consultation orders; and creating my report. CALL FOR NEXT APPOINTMENT/FOLLOW UP [facility]: 1 year FU LABS PRIOR TO NEXT APT: cbc, cmp, hga1c, lipids, tsh, vit D, ua, urine microalbumin cystatin C Disucssed Lab results. Discussed impression with . Discussed Physical Activity, Medication Compliance, Next appointment, Diet. Will plan to monitor bloodwork closely and have return for follow physical examination and act accordingly. I have asked to report to the clinic if any changes or concerns. I have recommended seek emergent medical attention for any urgent medical concerns. Some parts of this dictation were generated by voice recognition software and may contain some typographical and/or grammatical and accuracies. The electronic translation of spoken language may permit erroneous, or at times, nonsensical words or phrases to be inadvertently transcribed; although attempts have been made to review the note for such errors, some may still exist. HIV Screening-Routine: Patient has been offered HIV testing and has declined. I have explained that HIV testing is recommended for all adults, even if all risk factors are absent. [facility] DIGITAL DIVIDE CAPABILITY REMINDER: Patient is not interested in [facility] at this time. 'S RIGHT TO DECLINE STATEMENT [place] understands they have the right to decline the use of [employer] at any time without adverse affects on their continued access to healthcare. EATING DISORDER SCREENING: Screening Tools for Eating Disorders The SCOFF Questionnaire Do you make yourself Sick because you feel uncomfortably full? No Do you worry that you have lost Control over how much you eat? No Have you recently lost more than One stone (14 lb) in a 3-month period? No Do you believe yourself to be Fat when others say you are too thin? No Would you say that Food dominates your life? No SCOFF TOTAL SCORE: 0 Patient screening indicates a NEGATIVE SCORE OF <2. Cancel consult Cystatin C with eGFR Screen: The patient has a condition that may benefit from obtaining a Cystatin C test for accurate assessment of renal function. Cystatin C will be ordered with next clinic labs. Influenza Immunization: The patient declines to receive the recommended dose of seasonal influenza vaccine. Immunization: INFLUENZA, UNSPECIFIED FORMULATION Refusal Reason: PATIENT DECISION Patient refuses all immunization(s) in the FLU group Date Documented: 05/27/23 19:29 /seema/ JOSÉ SANTOS PHYSICIAN [employer] PROFESSIONAL CERTIFIED Signed: 05/27/2023 19:38 JOSÉ ZAMAN [facility] May 27, 2023 12:51 PM NURSING OUTPATIENT NOTE: LOCAL TITLE: CLINIC NURSING INTERVIEW [place] STANDARD TITLE: NURSING OUTPATIENT NOTE DATE OF NOTE: MAY 27, 2023@12:51 ENTRY DATE: MAY 27, 2023@12:51:03 AUTHOR: REUBEN JAUREGUI COSIGNER: URGENCY: STATUS: COMPLETED PATIENT DEMOGRAPHICS: Sex: MALE Date of : Nov Patient race: RACE UNKNOWN Patient ethnicity: ETHNICITY UNKNOWN B/P:116/70 (05/27/2023 12:47) P: 75 (05/27/2023 12:47) T: 98.2 F [36.8 C] (05/27/2023 12:47) R: 16 (05/27/2023 12:47) Pain: 6 (05/27/2023 12:47) PO: 96% (05/27/2023 12:47) WEIGHT: 250 lb [113.40 kg] (05/27/2023 12:47) Patient educated on pain scale. MEDICATIONALLERGIES/INTOLERA NCES: STRAWBERRIES Reason for visit: Other: C/O TROUBLE SLEEPING.+6 PAIN RIGHT SHOULDER STARTED 2 WEEKS AGO. Do you take Aspirin at home? No Patient states they want to talk to someone in this provider's office about things that worry them or cause them stress. Provider notified. Last Co-Manage Care note: CO-MANAGE CARE NOT COMPLETED WITHIN 6 MONTHS [CMCN] BELOW INFORMATION IS INSERTED INTO CO-MANAGED CARE-OK NOTE Inactivated co-managed care status. [facility] well as receive his/her medications here. [END*] DME Has there been any change in the Veterans mobility status? No Does [place] use DME or assistive device for mobility? No PERSONAL HEALTH PLAN Sexual Orientation: The patient thinks of their sexual orientation as: Straight or Heterosexual COVID-19 Immunization: Refused Moderna Monovalent COVID-19 vaccine Immunization: COVID-19 (MODERNA), MRNA, LNP-S, PF, 50 MCG/0.5 ML (AGES 12+ YEARS) Refusal Reason: PATIENT DECISION Patient refuses all immunization(s) in the COVID-19 group Date Documented: 05/27/23 12:53 Influenza Immunization: The patient declines to receive the recommended dose of seasonal influenza vaccine. Immunization: INFLUENZA, UNSPECIFIED FORMULATION Refusal Reason: PATIENT DECISION Patient refuses all immunization(s) in the FLU group Date Documented: 05/27/23 12:53 WARM HANDOFF GIVEN TO PCP /es/ REUBEN JAUREGUI LPN [employer] INFORMATION CLERK Signed: 05/27/2023 12:54 REUBEN JAUREGUI [facility]
--- NOTE | 2024-05-22 09:26 | ED_ITS ---
HPI - Dental/Oral General Chief complaint: Dental/Oral Stated complaint: abscess tooth Time Seen by Provider: 05/22/24 09:30 Source: patient, RN notes reviewed and old records reviewed Mode of arrival: ambulatory Limitations: no limitations History of Present Illness HPI Narrative: 43-year-old male presents to the [facility] with come [place] for an abscessed tooth. Has poor dentition. Decay and a broken tooth in the left upper. Swelling is noted. Related Data Home Medications ?Medication ?Instructions ?Recorded ?Confirmed ?Last Taken ?Type allopurinol 100 mg tablet 100 mg PO DAILY 05/22/24 05/22/24 Unknown History (Zyloprim) empagliflozin 25 mg tablet 25 mg PO DAILY 05/22/24 05/22/24 Unknown History (Jardiance) lisinopril 10 mg tablet 10 mg PO DAILY 05/22/24 05/22/24 Unknown History metformin 500 mg tablet 500 mg PO DAILY 05/22/24 05/22/24 Unknown History simvastatin 10 mg tablet 5 mg PO DAILY 05/22/24 05/22/24 Unknown History Allergies Allergy/AdvReac Type Severity Reaction Status Date / Time No Known Allergies Allergy Verified 05/22/24 09:31 Review of Systems Review of Systems: All systems reviewed & are unremarkable except as noted in HPI and below Constitutional: Constitutional: Reports no additional constitutional complaints ENT: Reports as per HPI Cardiovascular: Cardiovascular: Reports no additional cardiovascular complaints, Denies chest pain and Denies dyspnea Respiratory: Respiratory: Reports no additional respiratory complaints, Denies chest congestion, Denies cough and Denies dyspnea Musculoskeletal: Musculoskeletal: Reports no additional musculoskeletal complaints Integumentary/Breasts: Skin/Breast: Reports system reviewed and no additional complaints, except as docu PMFSH Comments At the time of my signature, I reviewed and agree with the nursing past medical, surgical, social, and family history. There is no relevant family history pertinent to the patient complaint. Exam Const: General: cooperative, healthy appearing, comfortable, no acute distress, well developed, alert and well nourished Nutritional Appearance: well nourished and obese Orientation/consciousness: patient oriented x3 Limitations: no limitations HENMT: Head: normal to inspection Ears: hearing grossly normal bilaterally, external ears normal, TM's normal bilaterally, EAC's normal, mastoids normal and no periauricular adenopathy Mouth: Yes Normal oral and palatal mucosa present, Yes lip normal and Yes tongue normal Teeth and gingiva: abnormal tooth and associated gingiva ( Left upper, erythema, multiple decayed and broken teeth. Gingival swelli) and poor dentition Throat: posterior oropharynx normal, uvula midline and no uvular edema Eyes: General: appearance normal, both eyes and all related structures Alignment and Position: alignment normal Neck: Neck: normal visual inspection, full ROM, no lymphadenopathy and no meningeal signs Chest: Chest palpation & inspection: normal inspection of the chest Resp: Effort & Inspection: normal respiratory effort and able to speak in complete sentences Auscultation: clear to auscultation bilaterally, no crackles, no rales, no rhonchi and no wheezes Cardio: Rate: regular rate Skin: General skin exam: normal color and no rashes or lesions noted Neuro: General: patient oriented x3, gait normal, moves all extremities and no meningeal signs Cognition (Neuro): normal cognition Speech: normal speech Gait exam (Neuro): Normal gait present Extrem: General: normal to inspection, full ROM, capillary refill normal and normal gait Psych: Appearance: grossly normal and well kempt Mental Status: mental status grossly normal Speech and movement: Normal speech and movement present and Clear speech present Affect: normal affect Attitude: cooperative Course Course Level of Care: Express Care Visit Vital Signs Vital signs: Vital Signs Temperature 97.9 F 05/22/24 08:56 Pulse Rate 69 05/22/24 08:56 Respiratory Rate 16 05/22/24 08:56 Blood Pressure 148/79 H 05/22/24 08:56 Pulse Oximetry 98 05/22/24 08:56 Oxygen Delivery Room Air 05/22/24 08:56 Temperature 97.9 F 05/22/24 08:56 Pulse Rate 69 05/22/24 08:56 Respiratory Rate 16 05/22/24 08:56 Blood Pressure 148/79 H 05/22/24 08:56 Pulse Oximetry 98 05/22/24 08:56 Oxygen Delivery Room Air 05/22/24 08:56 Reviewed MDM - Dental/Oral MDM Narrative Medical decision making narrative: patient sitting in exam room. Nontoxic, vitals stable except blood pressure elevated. Patient states he did not take his medications this morning. Patient presents with left upper dental discomfort. Multiple decayed teeth. Swelling and erythema noted to the gum area around the posterior gingival area. Patient appropriate for outpatient treatment with close follow-up. Handouts for dental follow-up given. Discharge instructions reviewed with patient, as well as provided in writing per nursing staff. The instructions also include specific and strict return/GO TO THE ER as well as f/u information. All questions have been answered, and the patient deny any further questions with discharge and discharge plan. Some parts of this dictation were generated by voice recognition software and may contain typographical and/or grammatical inaccuracies. Differential Diagnosis Differential diagnosis: Likely gingival abscess, dental caries, toothache, dental abscess, fracture of tooth and aphthous ulcer Critical Care Time Critical Care Time Critical Care Time: No Discharge Plan Discharge Clinical Impression: Dental caries, Dental abscess Patient Disposition: Home, Self-Care Condition: Stable Instructions: Antibiotic Form, Dental Abscess (ED) Additional Instructions: today your blood pressure was 148/79. Is recommended you follow-up with your primary care provider within 2 weeks To have this rechecked. [facility] dental/ oral surgery ?Visit our office, by appointment only Appointments Contact us to schedule, reschedule, or cancel your appointment. If a referral is required, you?ll need to contact your primary care provider first. Main Finish the entire course of antibiotics & use the mouthwash. After every time you eat be sure to use salt water rinses. Apply ice to face to help with pain. Take Tylenol alternating with Motrin as needed for pain. You can alternate every 4 hours You need to follow-up with a dental provider as soon as possible for further evaluation and treatment. A list of dental providers has been given to you Follow up with a Primary Care Provider (PCP) about medical needs. A PCP can help keep you healthy by preventive medicine and screening. Go to the ER for New or worsening symptoms. Patient Language: Frisian Prescriptions: New penicillin V potassium 500 mg tablet 500 mg PO QID 7 Days Qty: 28 0RF No Action metformin 500 mg tablet 500 mg PO DAILY Jardiance 25 mg tablet 25 mg PO DAILY simvastatin 10 mg tablet 5 mg PO DAILY lisinopril 10 mg tablet 10 mg PO DAILY allopurinol [Zyloprim] 100 mg tablet 100 mg PO DAILY Follow-up/Referrals: [facility] [Primary Care Provider] - Stand Alone Forms: Work/School Release IP Time of Disposition: 09:40
== END 2024-05-22 09:47 | disposition home or self-care (01) ==
PROVIDERS: Emergency Provider Nurse Practitioner
DX: K02.9 Dental caries, unspecified (principal); K04.7 Periapical abscess without sinus; E11.9 Type 2 diabetes mellitus without complications; Z79.84 Long term (current) use of oral hypoglycemic drugs; I10 Essential (primary) hypertension; E78.00 Pure hypercholesterolemia, unspecified; M10.9 Gout, unspecified
CPT/HCPCS: 99203; G0463